=== PATIENT | female | born 1930 | race Caucasian/White ===

== ENCOUNTER → 2016-09-03 | Outpatient (CLI) | payer BC ==
[~2016-09-03] MED LIST: ADVIN50/60 PO; ADVIN50050 INH; ALPR0.25 PO; ANS100 PO; ASPEC325 PO; ASPI81TA28 PO; BNC20 PO; CALC-354 PO; CEPH500C PO; DPS25 PO; ELQ25 PO; FEXO1TAB46 PO; LEVO100T7 PO; LEVO125T4 PO; LPR25 PO; LPT/20 PO; LPT20 PO; MISCTAB78 PO; MONT1TAB5 PO; MULTCAP33 PO; OLME20TA26 PO; OMEP20CA59 PO; SERT50TA PO; XNX25 PO
[2016-09-03 14:58] LABS: URINE APPEARANCE CLEAR (CLEAR); URINE BILIRUBIN NEG (NEG); URINE COLOR YELLOW; URINE EPITHELIAL CELL AUTO 20-30 /lpf (0-5); URINE NITRITE NEG (NEG); URINE PH 5.5 (4.5-7.5); URINE SPECIFIC GRAVITY 1.008 (1.000-1.030); UROBILINOGEN NEG (NEG)
[2016-09-03 15:08] LABS: MANUAL MICROSCOPIC REQUIRED? NO; REVIEW REQ? NO
== END | disposition home or self-care (01) ==
LOC: C.LABBC 10:18
PROVIDERS: ATTEND Internal Medicine
DX: N30.00 Acute cystitis without hematuria (principal); M79.604 Pain in right leg

== ENCOUNTER → 2016-09-03 | Outpatient (CLI) | payer BC ==
--- NOTE | 2016-09-03 13:24 | DIAGNOSTIC IMAGING REPORT ---
ULTRASOUND RIGHT VENOUS DOPP LOWER EXT UNILAT CLINICAL HISTORY: Right leg pain and swelling COMPARISON STUDY: No previous studies for comparison. FINDINGS: Real-time and color flow Doppler imaging were performed. Flow was seen within the femoral, popliteal and calf veins with no intraluminal thrombus demonstrated. The saphenous vein is patent. IMPRESSION: No evidence of right lower extremity DVT. Electronically signed by: Acosta Manuel M.D. 09/03/2016 1:22 PM Dictated Date/Time: 09/03/2016 1:21 PM
== END | disposition home or self-care (01) ==
LOC: C.ULTRBC 12:54
PROVIDERS: ATTEND Internal Medicine
DX: M79.604 Pain in right leg (principal)

== ENCOUNTER → 2016-09-09 | Outpatient (CLI) | payer BC ==
--- NOTE | 2016-09-09 15:00 | MAMMOGRAPHY REPORT ---
BILATERAL DIGITAL SCREENING MAMMOGRAM WITH CAD: 09/09/2016 CLINICAL HISTORY: Routine screening examination. TECHNIQUE: Bilateral CC, MLO and left cleavage views were obtained. Current study was also evaluate d with a Computer Aided Detection (CAD) system. COMPARISON: Comparison is made to exams dated: 09/07/2015 mammogram, 09/06/2014 mammogram, 08/09/2013 mammogram, and 08/06/2012 mammogram - [facility]. BREAST COMPOSITION: There are scattered areas of fibroglandular density in both breasts. FINDINGS: There are stable benign-appearing calcifications within the right breast. Stable nodulari ty in the upper outer anterior right breast. No suspicious mass, architectural distortion or cluste r of suspicious microcalcifications is seen. IMPRESSION: ACR BI-RADS CATEGORY 1: NEGATIVE There is no mammographic evidence of malignancy. A 1 year screening mammogram is recommended. The p atient will receive written notification of the results. Approximately 10% of breast cancers are not detected with mammography. A negative mammographic repor t should not delay biopsy if a clinically suggestive mass is present. Regina Vargas M.D. ay/:09/09/2016 13:26:03 Production Wood Craftsman: Cony PARHAM(R)(M), [facility] letter sent: Normal 1/2 BI-RADS Code: ACR BI-RADS Category 1: Negative
== END | disposition home or self-care (01) ==
LOC: C.MAMM 10:37
PROVIDERS: ATTEND Obstetrics & Gynecology
DX: Z12.31 Encounter for screening mammogram for malignant neoplasm of breast (principal)

== ENCOUNTER 2016-09-16 13:06 | Emergency (ER) | payer BC ==
[~2016-09-16] VITALS: Ht 162.6 cm; Wt 96.9 kg
[~2016-09-16 13:06] MED LIST changes: -ADVIN50/60 PO; -ASPI81TA28 PO; -CEPH500C PO; -LEVO100T7 PO; -LPT/20 PO; -MONT1TAB5 PO; -OLME20TA26 PO; -XNX25 PO
[2016-09-16 13:13] VITALS: TEMP 36.5; Ht 162.6 cm; Wt 96.9 kg
[2016-09-16] MEDS ORDERED: LEVO100T7 PO (13:34)
[2016-09-16] MEDS ORDERED: MONT1TAB5 PO (13:34)
[2016-09-16] MEDS ORDERED: ASPI81TA28 PO (13:34)
--- NOTE | 2016-09-16 14:21 | DIAGNOSTIC IMAGING REPORT ---
LEFT TIBIA AND FIBULA 2 VIEWS CLINICAL HISTORY: Fall with left leg injury. FINDINGS: AP and lateral views of the left tibia and fibula are obtained. Correlation is made with radiographs of the left knee dated 08/20/2011. The skeletal structures are osteopenic. No left tibial or fibular fracture is identified. Arthritic change is noted in the knee. Soft tissue swelling is present around the knee and in the upper calf. IMPRESSION: Soft tissue edema with no radiographic evidence of left tibial or fibular fracture. Electronically signed by: Liam Suarez M.D. 09/16/2016 2:20 PM Dictated Date/Time: 09/16/2016 2:18 PM
--- NOTE | 2016-09-16 14:24 | DIAGNOSTIC IMAGING REPORT ---
LEFT HUMERUS 2 VIEWS HISTORY: fall, left upper arm/shoulder pain COMPARISON: None. FINDINGS: There is no fracture or dislocation. Soft tissues are unremarkable. No radiopaque foreign bodies. IMPRESSION: No fracture or dislocation within the left humerus. Electronically signed by: Boston Quiroz M.D. 09/16/2016 2:22 PM Dictated Date/Time: 09/16/2016 2:21 PM
--- NOTE | 2016-09-16 14:28 | EMERGENCY ROOM VISIT NOTE ---
History First contact with patient: 13:32 Chief Complaint: FALL Stated Complaint: FELL-LARGE BRUISE ON LEFT KNEE History of Present Illness The patient is a 85 year old female who presents to the Emergency Room with complaints of a fall which occurred 3 days ago. The patient reports that she tripped and fell while rearranging furniture 3 days ago. She states she landed onto her left side. She reports that most of her pain is in her left knee and left lower leg. She also has some pain in her left upper arm/shoulder. She denies hitting her head. She denies any other injuries. She has been using crutches to aid with ambulation since the injury. She isn't taking Tylenol as needed for pain at home. She rates her discomfort a 3/10. She was concerned because there is a large amount of bruising and swelling. She denies any previous injuries to the knee or lower leg. Review of Systems A complete 6 point review of systems was reviewed with the patient with pertinent positives and negatives as per history of present illness. All else were negative. Past Medical/Surgical History Medical Problems: (1) Asthma (2) Hypertension (3) Hypothyroidism Social History Smoking Status: Never Smoker Marital Status: Occupation Status: retired Current/Historical Medications Scheduled Apixaban (Eliquis), 5 MG PO BID Aspirin (Aspirin Ec), 81 MG PO DAILY Dapsone (Dapsone), 25 MG PO QAM Fexofenadine Hcl (Crista), 180 MG PO DAILY Levothyroxine Sodium (Levothyroxine Sodium), 100 MCG PO DAILY Metoprolol Tartrate (Lopressor), 25 MG PO BID Montelukast Sodium (Montelukast Sodium), 10 MG PO DAILY Multiple Vitamins W/ Minerals (Preservision Areds), 1 CAP PO QAM Omeprazole (Prilosec), 20 MG PO QAM Sertraline (Zoloft), 50 MG PO AFTERNOON Allergies Coded Allergies: Macrolides (Unverified Allergy, Mild, 12/26/14) Penicillins (Unverified Allergy, Mild, 12/26/14) Amoxicillin (Verified Allergy, Unknown, Upset Stomach, 08/04/15) Azithromycin (Verified Allergy, Unknown, Nausea, 08/04/15) Clarithromycin (Verified Allergy, Unknown, Nausea, 08/04/15) Erythromycin (Verified Allergy, Unknown, ., 12/28/14) Moxifloxacin (Verified Allergy, Unknown, Unknown, 08/04/15) Gluten (Unverified Adverse Reaction, Unknown, RASH, 01/23/15) Pt stated she is "sensitive" to gluten. She gets a rash when gluten is consumed. Physical Exam Vital Signs Date Time Temp Pulse Resp B/P Pulse Ox O2 Delivery O2 Flow Rate FiO2 09/16/16 15:34 82 16 127/61 94 09/16/16 14:52 148/60 09/16/16 13:13 36.5 82 20 153/73 93 Room Air Physical Exam VITALS: Vitals are noted on the nurse's note and reviewed by myself. Vital signs stable. GENERAL: This is an 85-year-old female, in no acute distress, nondiaphoretic, well-developed well-nourished. SKIN: Capillary reflex less than 2 seconds. HEART: Regular rate and rhythm without murmurs gallops or rubs. LUNGS: Clear to auscultation bilaterally without wheezes, rales or rhonchi. MUSCULOSKELETAL: There is mild tenderness to palpation of the left humerus. There is tenderness over the left knee and proximal tibia/fibula. There is a large area of ecchymosis and mild edema over the left tibia/fib. NEURO: Patient was alert and oriented to person place and time. Normal sensation to light and sharp touch. Medical Decision & Procedures ER Provider Diagnostic Interpretation: LEFT HUMERUS 2 VIEWS IMPRESSION: No fracture or dislocation within the left humerus. LEFT KNEE 3 VIEWS IMPRESSION: Degenerative change. Prepatellar soft tissue edema. No acute bony antibody. LEFT TIBIA AND FIBULA 2 VIEWS IMPRESSION: Soft tissue edema with no radiographic evidence of left tibial or fibular fracture. Medical Decision Differential diagnosis includes sprain, fracture, contusion, among others. The patient was evaluated as above. X-rays of the left humerus, left knee and left tibia/fibular performed and read by radiology with no acute fractures. The patient does have a large area of ecchymosis to the left lower extremity. I feel this is likely secondary to her use of anticoagulants. She will be given a walker. She was given compartment syndrome precautions. She'll follow- up with her primary care provider as needed. She refused analgesics. The patient was independently evaluated by Dr. Carpenter, ED attending physician, who agreed with my assessment and treatment plan. She verbalized understanding of my assessment and treatment plan and was discharged home in good condition. Impression Primary Impression: Fall Additional Impressions: Contusion of multiple sites Left leg pain Departure Information Dispostion Home / Self-Care Condition GOOD Referrals Peterson Aguilar M.D. (PCP) Patient Instructions My [facility] [employer] Additional Instructions Use the walker as needed for help with walking until the leg starts feeling better. Continue Tylenol as needed for pain. Follow up with your primary care provider as needed. Return to the emergency department with worsening pain, increasing swelling, difficulty walking, loss of feeling in your leg/foot, or any other new/ concerning symptoms. Problem Qualifiers Primary Impression: Fall Encounter type: initial encounter Qualified Codes: W19.XXXA - Unspecified fall, initial encounter
--- NOTE | 2016-09-16 14:29 | DIAGNOSTIC IMAGING REPORT ---
LEFT KNEE 3 VIEWS CLINICAL HISTORY: fall, left leg pain/swelling/bruising trauma. Pain. COMPARISON: None. DISCUSSION: Moderate degenerative narrowing medial joint compartment. Significant degenerative change patellofemoral joint. Moderate prepatellar soft tissue edema. No acute bony antibody. IMPRESSION: Degenerative change. Prepatellar soft tissue edema. No acute bony antibody. Electronically signed by: Raheem Mccullough M.D. 09/16/2016 2:28 PM Dictated Date/Time: 09/16/2016 2:27 PM
--- NOTE | 2016-09-16 15:01 | EMERGENCY ROOM VISIT NOTE ---
ED Visit Note First contact with patient: 13:32 I did evaluate and examine this patient myself. I did guide management for the patient. I agree with the PA's assessment as discussed. Please see the PAs dictation for further details. I did independently review the x-rays. There is no evidence of fracture. Eyes examination she is neurovascularly intact with good distal pulses. She has no evidence of compartment syndrome. She was given cautions to return and told to keep the leg elevated. She was discharged in good condition with a walker.
[2016-09-16 15:34] VITALS: BP 127/61; PULSE 82; O2SAT 94
== END 2016-09-16 15:36 | disposition home or self-care (01) ==
LOC: C.EDB 13:09 → C.EDD 15:36
DX: S80.02XA Contusion of left knee, initial encounter (principal); S80.12XA Contusion of left lower leg, initial encounter; J45.909 Unspecified asthma, uncomplicated; E03.9 Hypothyroidism, unspecified; I10 Essential (primary) hypertension; W19.XXXA Unspecified fall, initial encounter; Y93.E9 Activity, other interior property and clothing maintenance; Y92.019 Unspecified place in single-family (private) house as the place of occurrence of the external cause; Y99.8 Other external cause status

== ENCOUNTER → 2016-11-01 | Outpatient (CLI) | payer BC ==
[~2016-11-01] MED LIST changes: +ADVIN50/60 PO; -ADVIN50050 INH; -ALPR0.25 PO; -ANS100 PO; -ASPEC325 PO; +ASPI81TA28 PO; -BNC20 PO; -CALC-354 PO; +CEPH500C PO; +LEVO100T7 PO; -LEVO125T4 PO; +LPT/20 PO; -LPT20 PO; -MISCTAB78 PO; +MONT1TAB5 PO; +OLME20TA26 PO; +XNX25 PO
[2016-11-01 15:09] LABS: BASO % 0.3 %; BASO ABS # 0.03 K/uL (0-0.2); COMPLETE YES; EOS % 2.2 %; HEMATOCRIT 36.9 % (37-47); IG% 0.4 %; LYMPH % 16.7 %; LYMPH ABS # 1.75 K/uL (1.2-3.4); MEAN CELL VOLUME 90.2 fL (80-100); MEAN CORPUSCULAR HEMOGLOBIN 29.1 pg (25-34); MEAN CORPUSCULAR HGB CONC 32.2 g/dl (32-36); MEAN PLATELET VOLUME 11.7 fL (7.4-10.4); MONO % 8.8 %; NEUT % 71.6 %; PLATELET COUNT 219 K/uL (130-400); RED BLOOD COUNT 4.09 M/uL (4.2-5.4); WHITE BLOOD COUNT 10.49 K/uL (4.8-10.8)
[2016-11-01 15:09] LABS: URINE APPEARANCE CLEAR (CLEAR); URINE BILIRUBIN NEG (NEG); URINE COLOR YELLOW; URINE NITRITE NEG (NEG); URINE SPECIFIC GRAVITY 1.007 (1.000-1.030); UROBILINOGEN NEG (NEG)
[2016-11-01 15:17] LABS: MANUAL MICROSCOPIC REQUIRED? NO; REVIEW REQ? NO
[2016-11-01 15:17] LABS: ALT/SGPT 22 U/L (12-78); BLOOD UREA NITROGEN 23 mg/dl (7-18); BUN/CREATININE RATIO 28.8 (10-20); CALCIUM 9.3 mg/dl (8.5-10.1); CARBON DIOXIDE 24 mmol/L (21-32); CHLORIDE 108 mmol/L (98-107); CREATININE 0.78 mg/dl (0.60-1.20); GLUCOSE 103 mg/dl (70-99); POTASSIUM 4.2 mmol/L (3.5-5.1); SODIUM 140 mmol/L (136-145)
[2016-11-01 15:20] LABS: ALKALINE PHOSPHATASE 69 U/L (45-117); AST/SGOT 21 U/L (15-37)
== END | disposition home or self-care (01) ==
LOC: C.LABBC 11:39
PROVIDERS: ATTEND Dermatology
DX: Z79.899 Other long term (current) drug therapy (principal); R35.0 Frequency of micturition; R30.0 Dysuria

== ENCOUNTER → 2016-12-30 | Outpatient (CLI) | payer BC ==
[2016-12-30 17:04] LABS: URINE APPEARANCE CLEAR (CLEAR); URINE BILIRUBIN NEG (NEG); URINE COLOR YELLOW; URINE NITRITE NEG (NEG); URINE PH 6.5 (4.5-7.5); URINE SPECIFIC GRAVITY 1.007 (1.000-1.030); UROBILINOGEN NEG (NEG)
[2016-12-30 17:06] LABS: MANUAL MICROSCOPIC REQUIRED? NO; REVIEW REQ? NO
== END | disposition home or self-care (01) ==
LOC: C.LABBC 12:57
PROVIDERS: ATTEND Physician Assistant Medical
DX: R35.0 Frequency of micturition (principal)

== ENCOUNTER → 2017-01-07 | Outpatient (CLI) | payer BC ==
[2017-01-07 13:23] LABS: URINE APPEARANCE CLEAR (CLEAR); URINE BILIRUBIN NEG (NEG); URINE COLOR YELLOW; URINE EPITHELIAL CELL AUTO >30 /lpf (0-5); URINE NITRITE NEG (NEG); URINE SPECIFIC GRAVITY 1.015 (1.000-1.030); UROBILINOGEN NEG (NEG)
[2017-01-07 13:41] LABS: MANUAL MICROSCOPIC REQUIRED? NO; REVIEW REQ? NO
== END | disposition home or self-care (01) ==
LOC: C.LABBC 11:59
PROVIDERS: ATTEND Physician Assistant Medical
DX: R35.0 Frequency of micturition (principal)

== ENCOUNTER → 2017-01-21 | Outpatient (CLI) | payer BC ==
[2017-01-21 13:35] LABS: BASO % 0.4 %; BASO ABS # 0.03 K/uL (0-0.2); COMPLETE YES; EOS % 3.4 %; HEMATOCRIT 36.7 % (37-47); IG% 0.5 %; LYMPH % 22.5 %; LYMPH ABS # 1.87 K/uL (1.2-3.4); MEAN CELL VOLUME 92.9 fL (80-100); MEAN CORPUSCULAR HEMOGLOBIN 29.6 pg (25-34); MEAN CORPUSCULAR HGB CONC 31.9 g/dl (32-36); MEAN PLATELET VOLUME 11.6 fL (7.4-10.4); MONO % 9.5 %; NEUT % 63.7 %; PLATELET COUNT 230 K/uL (130-400); RED BLOOD COUNT 3.95 M/uL (4.2-5.4); WHITE BLOOD COUNT 8.32 K/uL (4.8-10.8)
[2017-01-21 14:17] LABS: ALT/SGPT 23 U/L (12-78); AST/SGOT 18 U/L (15-37); BLOOD UREA NITROGEN 19 mg/dl (7-18); BUN/CREATININE RATIO 25.3 (10-20); CALCIUM 8.9 mg/dl (8.5-10.1); CARBON DIOXIDE 27 mmol/L (21-32); CHLORIDE 110 mmol/L (98-107); CHOLESTEROL 141 mg/dl (0-200); CREATININE 0.77 mg/dl (0.60-1.20); GLUCOSE 91 mg/dl (70-99); HDL CHOLESTEROL 47 mg/dl; LDL CHOLESTEROL CALCULATED 69 mg/dl; POTASSIUM 4.3 mmol/L (3.5-5.1); SODIUM 145 mmol/L (136-145); TRIGLYCERIDES 126 mg/dl (0-150); VERY LOW DENSITY LIPOPROT CALC 25 mg/dl
[2017-01-21 14:21] LABS: ESTIMATED AVERAGE GLUCOSE 91 mg/dl; HA1C FLAG Normal (Normal)
[2017-01-21 14:25] LABS: ALKALINE PHOSPHATASE 71 U/L (45-117); THYROID STIMULATING HORMONE 0.703 uIu/ml (0.300-4.500)
--- NOTE | 2017-01-28 06:19 | CODING QUERY MEDICAL NECESSITY ---
CQSUPPORTING DIAGNOSIS NEEDED A supporting diagnosis is required for the test/procedure performed on this patient in order for us to be reimbursed by the patient's insurance. Please provide a supporting diagnosis for the following test/procedure listed below next to the test name along with your signature. *If there is no additional diagnosis for this patient that would support the following test/procedure please document that below next to the test/procedure. Test(s)/Procedure(s) that require a supporting diagnosis: DOS 01/21/17 VITAMIN D TEST GLYCATED HEMOGLOBIN TEST Provider Signature: Date: Thank you Silvia Galvan Health Information Management Once completed, please kindly fax back to [phone] For questions please call [phone]
== END | disposition home or self-care (01) ==
LOC: C.LABBC 10:02
PROVIDERS: ATTEND Internal Medicine
DX: I48.0 Paroxysmal atrial fibrillation (principal); R73.01 Impaired fasting glucose; Z79.01 Long term (current) use of anticoagulants

== ENCOUNTER → 2017-03-06 | Outpatient (CLI) | payer BC ==
[2017-03-06 16:52] LABS: URINE APPEARANCE CLEAR (CLEAR); URINE BILIRUBIN NEG (NEG); URINE COLOR YELLOW; URINE NITRITE NEG (NEG); UROBILINOGEN NEG (NEG)
[2017-03-06 16:53] LABS: MANUAL MICROSCOPIC REQUIRED? NO; REVIEW REQ? NO
== END | disposition home or self-care (01) ==
LOC: C.LABBC 13:39
PROVIDERS: ATTEND Internal Medicine
DX: R35.0 Frequency of micturition (principal)

== ENCOUNTER → 2017-03-25 | Outpatient (CLI) | payer BC ==
--- NOTE | 2017-03-25 16:45 | DIAGNOSTIC IMAGING REPORT ---
RIGHT KNEE 1 OR 2 VIEWS ROUTINE HISTORY: 86 years-old Female JOINT PAIN, KNEE RIGHT Right COMPARISON: None available TECHNIQUE: Frontal and lateral views of the right knee FINDINGS: There is severe medial compartment and patellofemoral compartment osteoarthritis with moderate lateral compartment disease. No acute fracture or dislocation is identified. There is a moderate-sized joint effusion about the knee. No definite intra-articular loose body is identified. Negative for radiopaque foreign body. IMPRESSION: 1. No acute fracture or dislocation. 2. 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 3. Moderate-sized joint effusion. The above report was generated using voice recognition software. It may contain grammatical, syntax or spelling errors. Electronically signed by: Fredy Anne M.D. 03/25/2017 4:44 PM Dictated Date/Time: 03/25/2017 4:42 PM
== END | disposition home or self-care (01) ==
LOC: C.RADBC 15:20
PROVIDERS: ATTEND Physician Assistant Medical
DX: M17.11 Unilateral primary osteoarthritis, right knee (principal); M25.461 Effusion, right knee

== ENCOUNTER → 2017-04-17 | Outpatient (CLI) | payer BC ==
[2017-04-17 14:24] LABS: URINE APPEARANCE CLEAR (CLEAR); URINE BILIRUBIN NEG (NEG); URINE COLOR DK YELLOW; URINE EPITHELIAL CELL AUTO >30 /lpf (0-5); URINE NITRITE NEG (NEG); UROBILINOGEN NEG (NEG)
[2017-04-17 14:26] LABS: MANUAL MICROSCOPIC REQUIRED? NO; REVIEW REQ? NO
== END | disposition home or self-care (01) ==
LOC: C.LABBC 11:34
PROVIDERS: ATTEND Physician Assistant Medical
DX: R35.0 Frequency of micturition (principal)

== ENCOUNTER 2017-05-01 14:07 | Emergency (ER) | payer BC ==
[~2017-05-01] VITALS: Ht 165.1 cm; Wt 95.5 kg
[~2017-05-01 14:07] MED LIST changes: -ADVIN50/60 PO; -CEPH500C PO; -LPT/20 PO; -OLME20TA26 PO; -XNX25 PO
[2017-05-01 14:14] VITALS: TEMP 36.6; Ht 165.1 cm; Wt 95.5 kg
[2017-05-01] MEDS ORDERED: ADVIN50/60 PO (14:56)
[2017-05-01] MEDS ORDERED: LPT/20 PO (14:56)
[2017-05-01] MEDS ORDERED: XNX25 PO (14:56)
[2017-05-01] MEDS ORDERED: OLME20TA26 PO (14:56)
[2017-05-01] MEDS ORDERED: CEPH500C PO (15:01)
--- NOTE | 2017-05-01 15:02 | EMERGENCY ROOM VISIT NOTE ---
History Report prepared by Shakira: Vanesa Wise Under the Supervision of: Dr. Bradley Pretty D.O. First contact with patient: 14:48 Chief Complaint: SWELLING TO EXTREMITY Stated Complaint: SWELLING TO RIGHT ELBOW History of Present Illness The patient is an 86 year old female who presents to the Emergency Room with complaints of worsening right elbow swelling starting 0200 this morning. The patient states that it seems like there is fluid in her elbow. She states that it was slightly warm. The swelling seems to be spreading. She is on eliquis. She has had her knee drained before after similar swelling. She does not remember injuring it. She has no other complaints at this time. Source of History: patient Onset: 0200 this morning Position: elbow (right) Quality: other (swelling) Timing: worsening Note: Pt reports elbow warmth. Review of Systems See HPI for pertinent positives & negatives. A total of 10 systems reviewed and were otherwise negative. Past Medical & Surgical Medical Problems: (1) Asthma (2) Hypertension (3) Hypothyroidism Family History Noncontributory secondary to age. Social History Smoking Status: Never Smoker Marital Status: Occupation Status: retired Current/Historical Medications Scheduled Apixaban (Eliquis), 5 MG PO BID Aspirin (Aspirin Ec), 81 MG PO DAILY Atorvastatin (Atorvastatin Calcium), 20 MG PO DAILY Dapsone (Dapsone), 50 MG PO QAM Fexofenadine Hcl (Crista), 180 MG PO DAILY Fluticasone Prop/Salmeterol (Advair Diskus 500/50 60 Dose), 1 PUFF PO BID Levothyroxine Sodium (Levothyroxine Sodium), 100 MCG PO DAILY Metoprolol Tartrate (Lopressor), 25 MG PO BID Montelukast Sodium (Montelukast Sodium), 10 MG PO DAILY Multiple Vitamins W/ Minerals (Preservision Areds), 1 CAP PO QAM Olmesartan Medoxomil (Olmesartan Medoxomil), 20 MG PO DAILY Omeprazole (Prilosec), 20 MG PO QAM Sertraline (Zoloft), 50 MG PO AFTERNOON Scheduled PRN Alprazolam (Alprazolam), 0.25 MG PO DAILY PRN for Anxiety Allergies Coded Allergies: Macrolides (Unverified Allergy, Mild, 12/26/14) Penicillins (Unverified Allergy, Mild, 12/26/14) Amoxicillin (Verified Allergy, Unknown, Upset Stomach, 08/04/15) Azithromycin (Verified Allergy, Unknown, Nausea, 08/04/15) Clarithromycin (Verified Allergy, Unknown, Nausea, 08/04/15) Erythromycin (Verified Allergy, Unknown, ., 12/28/14) Moxifloxacin (Verified Allergy, Unknown, Unknown, 08/04/15) Gluten (Unverified Adverse Reaction, Unknown, RASH, 01/23/15) Pt stated she is "sensitive" to gluten. She gets a rash when gluten is consumed. Physical Exam Vital Signs Date Time Temp Pulse Resp B/P (MAP) Pulse Ox O2 Delivery O2 Flow Rate FiO2 05/01/17 14:14 36.6 91 18 114/75 93 Room Air Physical Exam CONSTITUTIONAL/VITAL SIGNS: Reviewed / noted above. GENERAL: Non-toxic in appearance. INTEGUMENTARY: Warm, dry, and [place]. HEAD: Normocephalic. EYES: without scleral icterus or trauma. ENT/OROPHARYNX: clear and moist. LYMPHADENOPATHY/NECK: Is supple without lymphadenopathy or meningismus. RESPIRATORY: Lungs clear and equal. CARDIOVASCULAR: Regular rate and rhythm. GI/ABDOMEN: Soft and nontender. No organomegaly or pulsatile mass. No rebound or guarding. Normal bowel sounds. EXTREMITIES: Warm and well perfused. Ecchymosis and swelling to right elbow, no obvious infection, area slightly warm over the right olecranon. BACK: No CVA tenderness. NEUROLOGICAL: Intact without focal deficits. PSYCHIATRIC: normal affect. MUSCULOSKELETAL: Normally developed with good muscle tone. Medical Decision & Procedures ED Course 1450: Previous medical records were reviewed. The patient was evaluated in room A3. A complete history and physical examination was performed. I discussed the results and findings with the patient. She verbalized agreement of the treatment plan. She was discharged home. Medical Decision Differential diagnosis: infection, contusion, fracture, dislocation. This is an 86-year-old female who presents to the ED with a chief complaint of right elbow swelling. The patient states that she noticed that this morning when she awoke. She does not recall specific injury. She is on Eliquis. The patient's exam reveals a ecchymotic area to the right elbow with some mild traumatic bursitis. There is some increased warmth to the area. The patient has no other specific complaints. Her symptoms are consistent with a traumatic bursitis. She has a contusion to her right elbow. She was discharged on Keflex to prevent or to treat early infection. She is felt to be stable for discharge. Medication Reconcilliation Current Medication List: was personally reviewed by me Blood Pressure Screening Patient's blood pressure: Normal blood pressure Blood pressure disposition: Did not require urgent referral Impression Primary Impression: Contusion of right elbow Scribe Attestation The scribe's documentation has been prepared under my direction and personally reviewed by me in its entirety. I confirm that the note above accurately reflects all work, treatment, procedures, and medical decision making performed by me. Departure Information Dispostion Home / Self-Care Prescriptions Cephalexin Monohydrate (Keflex) 500 Mg Cap 500 MG PO QID, #28 CAP Prov: Bradley Pretty D.O. 05/01/17 Referrals No Doctor, Assigned (PCP) Patient Instructions My [facility] Additional Instructions Keflex as prescribed. Follow-up with your doctor for further care and evaluation in 1-7 days. Return to the emergency department for worsening or new symptoms or any concerns. You have been examined and treated today on an emergency basis only. This is not a substitute for, or an effort to provide, complete comprehensive medical care. It is impossible to recognize and treat all injuries or illnesses in a single emergency department visit. It is therefore important that you follow up closely with your doctor. Call as soon as possible for an appointment.
[2017-05-01 15:23] VITALS: BP 119/54; PULSE 75; O2SAT 94
== END 2017-05-01 15:25 | disposition home or self-care (01) ==
LOC: C.EDB 14:09 → C.EDA 15:25
DX: S50.01XA Contusion of right elbow, initial encounter (principal); X58.XXXA Exposure to other specified factors, initial encounter; J45.909 Unspecified asthma, uncomplicated; I10 Essential (primary) hypertension; E03.9 Hypothyroidism, unspecified; Z79.82 Long term (current) use of aspirin

== ENCOUNTER → 2017-06-02 | Outpatient (CLI) | payer BC ==
[~2017-06-02] MED LIST changes: +ADVIN50/60 PO; +CEPH500C PO; -FEXO1TAB46 PO; +LPT/20 PO; +OLME20TA26 PO; +XNX25 PO
[2017-06-02 13:25] LABS: BASO % 0.4 %; BASO ABS # 0.03 K/uL (0-0.2); COMPLETE YES; EOS % 2.9 %; HEMATOCRIT 36.3 % (37-47); IG% 0.1 %; LYMPH % 26.8 %; LYMPH ABS # 1.88 K/uL (1.2-3.4); MEAN CELL VOLUME 91.2 fL (80-100); MEAN CORPUSCULAR HEMOGLOBIN 29.1 pg (25-34); MEAN PLATELET VOLUME 11.7 fL (7.4-10.4); MONO % 8.6 %; NEUT % 61.2 %; PLATELET COUNT 214 K/uL (130-400); RED BLOOD COUNT 3.98 M/uL (4.2-5.4); WHITE BLOOD COUNT 7.01 K/uL (4.8-10.8)
[2017-06-02 16:22] LABS: ALT/SGPT 20 U/L (12-78); BLOOD UREA NITROGEN 15 mg/dl (7-18); BUN/CREATININE RATIO 19.4 (10-20); CALCIUM 9.2 mg/dl (8.5-10.1); CARBON DIOXIDE 24 mmol/L (21-32); CHLORIDE 110 mmol/L (98-107); CREATININE 0.79 mg/dl (0.60-1.20); GLUCOSE 102 mg/dl (70-99); POTASSIUM 4.1 mmol/L (3.5-5.1); SODIUM 141 mmol/L (136-145)
[2017-06-02 16:25] LABS: ALB/GLOB RATIO 1.1 (0.9-2); ALKALINE PHOSPHATASE 70 U/L (45-117); AST/SGOT 20 U/L (15-37)
== END | disposition home or self-care (01) ==
LOC: C.LABBC 11:45
PROVIDERS: ATTEND Dermatology
DX: Z51.81 Encounter for therapeutic drug level monitoring (principal); Z79.899 Other long term (current) drug therapy

== ENCOUNTER → 2017-07-24 | Outpatient (CLI) | payer BC ==
[2017-07-24 16:58] LABS: BASO % 0.6 %; BASO ABS # 0.05 K/uL (0-0.2); COMPLETE YES; EOS % 2.9 %; HEMATOCRIT 35.4 % (37-47); IG% 0.2 %; LYMPH % 19.2 %; LYMPH ABS # 1.74 K/uL (1.2-3.4); MEAN CELL VOLUME 93.2 fL (80-100); MEAN CORPUSCULAR HEMOGLOBIN 28.9 pg (25-34); MEAN CORPUSCULAR HGB CONC 31.1 g/dl (32-36); MONO % 10.7 %; NEUT % 66.4 %; PLATELET COUNT 214 K/uL (130-400); WHITE BLOOD COUNT 9.08 K/uL (4.8-10.8)
[2017-07-25 06:33] LABS: ESTIMATED AVERAGE GLUCOSE 85 mg/dl; HA1C FLAG Normal (Normal)
== END | disposition home or self-care (01) ==
LOC: C.LABBC 13:15
PROVIDERS: ATTEND Internal Medicine
DX: R73.01 Impaired fasting glucose (principal); D64.9 Anemia, unspecified

== ENCOUNTER → 2017-10-07 | Outpatient (CLI) | payer BC ==
[~2017-10-07] MED LIST changes: -LPT/20 PO; +LPT20 PO
--- NOTE | 2017-10-07 15:24 | MAMMOGRAPHY REPORT ---
BILATERAL DIGITAL SCREENING MAMMOGRAM TOMOSYNTHESIS WITH CAD: 10/07/2017 CLINICAL HISTORY: Routine screening. Patient has no complaints. TECHNIQUE: Breast tomosynthesis in addition to standard 2D mammography was performed. Current study was also evaluated with a Computer Aided Detection (CAD) system. COMPARISON: Comparison is made to exams dated: 09/09/2016 mammogram, 09/07/2015 mammogram, 09/06/2014 m ammogram, 08/09/2013 mammogram, 02/16/2013 mammogram, and 08/21/2012 ultrasound - [facility] enter. BREAST COMPOSITION: There are scattered areas of fibroglandular density in both breasts. FINDINGS: The glandular pattern is similar to prior exams, with stable asymmetries bilaterally. Ther e are benign-appearing calcifications in the right breast. No suspicious mass, architectural distort ion or cluster of suspicious microcalcifications is seen. IMPRESSION: ACR BI-RADS CATEGORY 1: NEGATIVE There is no mammographic evidence of malignancy. A 1 year screening mammogram is recommended. The pa tient will receive written notification of the results. Approximately 10% of breast cancers are not detected with mammography. A negative mammographic report should not delay biopsy if a clinically suggestive mass is present. Regina Vargas M.D. ay/:10/07/2017 13:46:34 [employer]ogshead Stock Clerk: Xochitl Barriga, [facility] letter sent: Normal 1/2 BI-RADS Code: ACR BI-RADS Category 1: Negative
== END | disposition home or self-care (01) ==
LOC: C.MAMM 10:50
PROVIDERS: ATTEND Obstetrics & Gynecology
DX: Z12.31 Encounter for screening mammogram for malignant neoplasm of breast (principal)

== ENCOUNTER → 2017-10-24 | Outpatient (CLI) | payer BC ==
[2017-10-24 17:02] LABS: BASO % 0.4 %; BASO ABS # 0.04 K/uL (0-0.2); EOS % 2.3 %; EOS ABS # 0.25 K/uL (0-0.5); HEMOGLOBIN 11.4 g/dL (12.0-16.0); IG# 0.03 K/uL (0.00-0.02); LYMPH % 18.4 %; LYMPH ABS # 1.96 K/uL (1.2-3.4); MEAN CELL VOLUME 91.8 fL (80-100); MEAN CORPUSCULAR HEMOGLOBIN 29.1 pg (25-34); MEAN CORPUSCULAR HGB CONC 31.7 g/dl (32-36); MEAN PLATELET VOLUME 11.9 fL (7.4-10.4); MONO ABS # 0.96 K/uL (0.11-0.59); NEUT % 69.6 %; NEUT ABS # 7.41 K/uL (1.4-6.5); PLATELET COUNT 217 K/uL (130-400); RED CELL DISTRIBUTION WIDTH CV 13.7 % (11.5-14.5); RED CELL DISTRIBUTION WIDTH SD 45.1 fL (36.4-46.3); WHITE BLOOD COUNT 10.65 K/uL (4.8-10.8)
[2017-10-24 17:29] LABS: BLOOD UREA NITROGEN 28 mg/dl (7-18); CARBON DIOXIDE 24 mmol/L (21-32); CREATININE 0.78 mg/dl (0.60-1.20); GLUCOSE 90 mg/dl (70-99); POTASSIUM 4.3 mmol/L (3.5-5.1); SODIUM 140 mmol/L (136-145)
== END | disposition home or self-care (01) ==
LOC: C.LABBC 14:43
PROVIDERS: ATTEND Internal Medicine
DX: E03.9 Hypothyroidism, unspecified (principal); D64.9 Anemia, unspecified

== ENCOUNTER → 2017-11-11 | Outpatient (CLI) | payer BC ==
[~2017-11-11] MED LIST changes: -CEPH500C PO; +NUTR-7 PO
== END ==
LOC: C.PAPS 15:11
PROVIDERS: ATTEND Obstetrics & Gynecology
DX: Z12.4 Encounter for screening for malignant neoplasm of cervix (principal)

== ENCOUNTER 2017-11-12 13:30 | Emergency (ER) | payer BC ==
[~2017-11-12] VITALS: Ht 162.6 cm; Wt 93.0 kg
[~2017-11-12 13:30] MED LIST changes: -NUTR-7 PO
[2017-11-12 13:33] VITALS: TEMP 36.9; Ht 162.6 cm; Wt 93.0 kg
--- NOTE | 2017-11-12 14:10 | EMERGENCY ROOM VISIT NOTE ---
History Report prepared by Shakira: Alejandro Calles Under the Supervision of: Dr. Genia Pinto D.O. First contact with patient: 13:44 Chief Complaint: PALPITATIONS Stated Complaint: AFIB Nursing Triage Summary: pt woke up with feeling like her heart is racing hx of a fib no c/o chest pain History of Present Illness The patient is an 87 year old female with a history of atrial fibrillation who presents to the Emergency Room with complaints of an episode of palpitations upon waking this morning. She states that she felt like her heart was racing, and she checked her pulse and it felt fast and perhaps was skipping. The patient notes that she was shaky this morning. She says that she did not have any chest pain. The patient states that she called her nurse this morning and was given instructions on how to breathe, and was told to come here for evaluation. She says that she was told to take a half of Xanax which she did. The patient says that currently her heart does not feel like it is racing but her heart "feels funny". She adds that she takes Eliquis and a baby Aspirin daily. The patient denies any dizziness, shortness of breath, nausea, sweating, numbness, tingling, bowel movement changes, urinary symptoms, or leg swelling. She also notes no recent illnesses. Source of History: patient Onset: Upon waking this morning Position: other (heart) Symptom Intensity: heart racing Quality: other (palpitations) Timing: other (episode) Associated Symptoms: No diaphoresis, No chest pain, No SOB, No nausea, No urinary symptoms (or bowel movement changes), No numbness (or tingling) Note: Associated symptoms: Pulse skipping. Shaky this morning. Currently heart "feels funny". Denies dizziness. Review of Systems See HPI for pertinent positives & negatives. A total of 10 systems reviewed and were otherwise negative. Past Medical & Surgical Medical Problems: (1) Asthma (2) Hypertension (3) Hypothyroidism Family History FHx: cancer Heart disease Social History Smoking Status: Never Smoker Marital Status: Occupation Status: retired Current/Historical Medications Scheduled Apixaban (Eliquis), 5 MG PO BID Aspirin (Aspirin Ec), 81 MG PO DAILY Atorvastatin (Lipitor), 20 MG PO DAILY Dapsone (Dapsone), 25 MG PO QAM Fluticasone Prop/Salmeterol (Advair Diskus 500/50 60 Dose), 1 PUFF PO BID Levothyroxine Sodium (Levothyroxine Sodium), 100 MCG PO DAILY Metoprolol Tartrate (Lopressor), 25 MG PO BID Montelukast Sodium (Montelukast Sodium), 10 MG PO DAILY Nutritional Supplements (Boost), 1 CAN PO DAILY Sertraline (Zoloft), 75 MG PO AFTERNOON Scheduled PRN Alprazolam (Alprazolam), 0.25 MG PO DAILY PRN for Anxiety Allergies Coded Allergies: Macrolides (Unverified Allergy, Mild, 11/12/17) Penicillins (Unverified Allergy, Mild, 11/12/17) Amoxicillin (Verified Allergy, Unknown, Upset Stomach, 11/12/17) Azithromycin (Verified Allergy, Unknown, Nausea, 11/12/17) Clarithromycin (Verified Allergy, Unknown, Nausea, 11/12/17) Erythromycin (Verified Allergy, Unknown, ., 11/12/17) Moxifloxacin (Verified Allergy, Unknown, Unknown, 11/12/17) Gluten (Unverified Adverse Reaction, Unknown, RASH, 11/12/17) Pt stated she is "sensitive" to gluten. She gets a rash when gluten is consumed. Physical Exam Vital Signs Date Time Temp Pulse Resp B/P (MAP) Pulse Ox O2 Delivery O2 Flow Rate FiO2 11/12/17 15:57 91 11/12/17 15:23 77 18 123/76 96 Room Air 11/12/17 13:54 89 11/12/17 13:33 36.9 101 18 171/72 93 Room Air Physical Exam GENERAL: alert, well appearing, well nourished, no distress, non-toxic EYE EXAM: normal conjunctiva, PERRL and EOM's grossly intact OROPHARYNX: no exudate, no erythema, lips, buccal mucosa, and tongue normal and mucous membranes are moist NECK: supple, no nuchal rigidity, no adenopathy, non-tender LUNGS: Clear to auscultation. Normal chest wall mechanics, no w/r/r HEART: Normal sinus rhythm on telemetry, no murmurs, S1 normal and S2 normal ABDOMEN: abdomen soft, non-tender, normo-active bowel sounds, no masses, no rebound or guarding. BACK: Back is symmetrical on inspection and there is no deformity, no midline tenderness, no CVA tenderness. SKIN: no rashes and no bruising UPPER EXTREMITIES: upper extremities are grossly normal. FROM, nml pulses. LOWER EXTREMITIES: No pitting edema. FROM, nml pulses. NEURO EXAM: Normal sensorium, cranial nerves II-XII grossly intact, normal speech, no gross weakness of arms, no gross weakness of legs. Medical Decision & Procedures ER Provider Diagnostic Interpretation: X-ray: Per my review, radiologist interpretation. CHEST ONE VIEW PORTABLE CLINICAL HISTORY: palpitations cardiac arrhythmia COMPARISON STUDY: No previous studies for comparison. FINDINGS: The bones soft tissues and hemidiaphragms are normal. The cardiomediastinal silhouette is normal. The lungs are clear. The pulmonary vasculature is somewhat increased IMPRESSION: Pulmonary vascular congestion. The above report was generated using voice recognition software. It may contain grammatical, syntax or spelling errors. Electronically signed by: Raheem Mccullough M.D. 11/12/2017 2:37 PM Dictated Date/Time: 11/12/2017 2:32 PM Laboratory Results 11/12/17 14:11 Red Blood Count 3.64, Mean Corpuscular Volume 91.2, Mean Corpuscular Hemoglobin 29.7, Mean Corpuscular Hemoglobin Concent 32.5, Mean Platelet Volume 11.1, Neutrophils (%) (Auto) 73.8, Lymphocytes (%) (Auto) 15.0, Monocytes (%) (Auto) 9.2, Eosinophils (%) (Auto) 1.6, Basophils (%) (Auto) 0.2, Neutrophils # (Auto) 5.98, Lymphocytes # (Auto) 1.22, Monocytes # (Auto) 0.75, Eosinophils # (Auto) 0.13, Basophils # (Auto) 0.02 11/12/17 14:11 Test 11/12/17 14:11 11/12/17 14:29 11/12/17 16:31 White Blood Count 8.12 K/uL (4.8-10.8) Red Blood Count 3.64 M/uL (4.2-5.4) Hemoglobin 10.8 g/dL (12.0-16.0) Hematocrit 33.2 % (37-47) Mean Corpuscular Volume 91.2 fL (80-100) Mean Corpuscular Hemoglobin 29.7 pg (25-34) Mean Corpuscular Hemoglobin Concent 32.5 g/dl (32-36) Platelet Count 179 K/uL (130-400) Mean Platelet Volume 11.1 fL (7.4-10.4) Neutrophils (%) (Auto) 73.8 % Lymphocytes (%) (Auto) 15.0 % Monocytes (%) (Auto) 9.2 % Eosinophils (%) (Auto) 1.6 % Basophils (%) (Auto) 0.2 % Neutrophils # (Auto) 5.98 K/uL (1.4-6.5) Lymphocytes # (Auto) 1.22 K/uL (1.2-3.4) Monocytes # (Auto) 0.75 K/uL (0.11-0.59) Eosinophils # (Auto) 0.13 K/uL (0-0.5) Basophils # (Auto) 0.02 K/uL (0-0.2) RDW Standard Deviation 45.2 fL (36.4-46.3) RDW Coefficient of Variation 13.6 % (11.5-14.5) Immature Granulocyte % (Auto) 0.2 % Immature Granulocyte # (Auto) 0.02 K/uL (0.00-0.02) Prothrombin Time 10.5 SECONDS (9.0-12.0) Prothromb Time International Ratio 1.0 (0.9-1.1) Anion Gap 9.0 mmol/L (3-11) Est Creatinine Clear Calc Drug Dose 55.1 ml/min Estimated GFR () 76.2 Estimated GFR (Non- 65.8 BUN/Creatinine Ratio 39.5 (10-20) Calcium Level 9.1 mg/dl (8.5-10.1) Magnesium Level 2.2 mg/dl (1.8-2.4) Total Bilirubin 0.6 mg/dl (0.2-1) Aspartate Amino Transf (AST/SGOT) 16 U/L (15-37) Alanine Aminotransferase (ALT/SGPT) 18 U/L (12-78) Alkaline Phosphatase 64 U/L (45-117) Troponin I < 0.015 ng/ml (0-0.045) Pro-B-Type Natriuretic Peptide 188 pg/ml (0-1800) Total Protein 6.9 gm/dl (6.4-8.2) Albumin 3.3 gm/dl (3.4-5.0) Globulin 3.6 gm/dl (2.5-4.0) Albumin/Globulin Ratio 0.9 (0.9-2) Lipase 278 U/L (73-393) Thyroid Stimulating Hormone (TSH) 1.200 uIu/ml (0.300-4.500) Influenza Type A Antigen Neg for Influ A (NEG) Influenza Type B Antigen Neg for Influ B (NEG) Urine Color YELLOW Urine Appearance CLEAR (CLEAR) Urine pH 6.0 (4.5-7.5) Urine Specific Bishop <= 1.005 (1.000-1.030) Urine Protein NEG (NEG) Urine Glucose (UA) NEG (NEG) Urine Ketones NEG (NEG) Urine Occult Blood NEG (NEG) Urine Nitrite NEG (NEG) Urine Bilirubin NEG (NEG) Urine Urobilinogen NEG (NEG) Urine Leukocyte Esterase NEG (NEG) Laboratory results per my review. ECG Per My Interpretation Indication: palpitations Rate (beats per minute): 91 Rhythm: normal sinus Findings: Q waves (in 3 and AVF), no acute ischemic change, other (normal axis , normal intervals, low voltage throughout) ED Course 1400: The patient was evaluated in room B12B. A complete history and physical exam was performed. Medical Decision Differential diagnosis includes etiologies such as premature contractions, electrolyte abnormality, cardiac dysrhythmia, thyroid dysfunction, pulmonary embolism, infection, gastrointestinal, as well as others were entertained. NO dysrhythmias noted on tele during stay or with ambulation. Pt states she still felt intermittent palpitations. No apparent distress. Labs and imaging reassuring. No evidence of infection, electrolyte abnormalities. Pt states she has had intermittent a.fib which is why she is anticoagulated, but states she has also had this same sense in her chest due to anxiety which is why when she called the advice nurse they instructed her to try some breathing exercises first. No findings to suggest chau chf. Pt with no pain or sob. Doubt acs, pe. Doubt acute vascular pathology. Anemia stable compared to prior levels. Discussed with pt close f/u with her live source operator, continuing current medications, avoiding salt in her diet, sx to watch/return for, she verbalized understanding and was agreeable with plan. Pt without any distress or hypoxia during ambulation, and denied any other complaints. Pt comfortable with plan and eager to return home. All questions answered at bedside. Medication Reconcilliation Current Medication List: was personally reviewed by me Blood Pressure Screening Patient's blood pressure: Elevated blood pressure Blood pressure disposition: Referred to PCP Impression Primary Impression: Palpitations Scribe Attestation The scribe's documentation has been prepared under my direction and personally reviewed by me in its entirety. I confirm that the note above accurately reflects all work, treatment, procedures, and medical decision making performed by me. Departure Information Dispostion Home / Self-Care Referrals Peterson Aguilar M.D. (PCP) Patient Instructions [facility] Additional Instructions Please call and follow-up with your doctor within the next 2 days. Please call and follow-up with your live source operator as a precaution also. If you have any more persistent or worsening palpitations/racing heart, develop trouble breathing, dizziness, worsening cough, fevers, swelling in your legs, you have any other new concerns, please return the emergency room. Please continue your regular medications as prescribed.
[2017-11-12 14:23] LABS: BASO % 0.2 %; BASO ABS # 0.02 K/uL (0-0.2); EOS % 1.6 %; EOS ABS # 0.13 K/uL (0-0.5); HEMATOCRIT 33.2 % (37-47); HEMOGLOBIN 10.8 g/dL (12.0-16.0); IG# 0.02 K/uL (0.00-0.02); LYMPH ABS # 1.22 K/uL (1.2-3.4); MEAN CELL VOLUME 91.2 fL (80-100); MEAN CORPUSCULAR HEMOGLOBIN 29.7 pg (25-34); MEAN CORPUSCULAR HGB CONC 32.5 g/dl (32-36); MEAN PLATELET VOLUME 11.1 fL (7.4-10.4); MONO % 9.2 %; MONO ABS # 0.75 K/uL (0.11-0.59); NEUT % 73.8 %; NEUT ABS # 5.98 K/uL (1.4-6.5); PLATELET COUNT 179 K/uL (130-400); RED CELL DISTRIBUTION WIDTH CV 13.6 % (11.5-14.5); RED CELL DISTRIBUTION WIDTH SD 45.2 fL (36.4-46.3); WHITE BLOOD COUNT 8.12 K/uL (4.8-10.8)
--- NOTE | 2017-11-12 14:38 | DIAGNOSTIC IMAGING REPORT ---
CHEST ONE VIEW PORTABLE CLINICAL HISTORY: palpitations cardiac arrhythmia COMPARISON STUDY: No previous studies for comparison. FINDINGS: The bones soft tissues and hemidiaphragms are normal. The cardiomediastinal silhouette is normal. The lungs are clear. The pulmonary vasculature is somewhat increased IMPRESSION: Pulmonary vascular congestion. The above report was generated using voice recognition software. It may contain grammatical, syntax or spelling errors. Electronically signed by: Raheem Mccullough M.D. 11/12/2017 2:37 PM Dictated Date/Time: 11/12/2017 2:32 PM
[2017-11-12 15:03] LABS: BLOOD UREA NITROGEN 32 mg/dl (7-18); CREATININE 0.81 mg/dl (0.60-1.20); GLUCOSE 99 mg/dl (70-99)
[2017-11-12 15:04] LABS: CALCIUM 9.1 mg/dl (8.5-10.1); CARBON DIOXIDE 21 mmol/L (21-32); POTASSIUM 3.9 mmol/L (3.5-5.1); SODIUM 138 mmol/L (136-145)
[2017-11-12 15:05] LABS: ALBUMIN 3.3 gm/dl (3.4-5.0); ALT/SGPT 18 U/L (12-78); AST/SGOT 16 U/L (15-37); TOTAL PROTEIN 6.9 gm/dl (6.4-8.2)
[2017-11-12 15:06] LABS: ALKALINE PHOSPHATASE 64 U/L (45-117); LIPASE 278 U/L (73-393)
[2017-11-12 15:09] LABS: INFLUENZA B ANTIGEN Neg for Influ B (NEG)
[2017-11-12] MEDS ORDERED: NUTR-7 PO (15:19)
[2017-11-12 15:23] VITALS: BP 123/76; PULSE 77
[2017-11-12 15:57] VITALS: O2SAT 91
== END 2017-11-12 17:39 | disposition home or self-care (01) ==
LOC: C.EDB 13:31
DX: R00.2 Palpitations (principal); J45.909 Unspecified asthma, uncomplicated; I10 Essential (primary) hypertension; I48.91 Unspecified atrial fibrillation; E03.9 Hypothyroidism, unspecified; Z79.01 Long term (current) use of anticoagulants; Z79.82 Long term (current) use of aspirin; Z79.899 Other long term (current) drug therapy

== ENCOUNTER → 2017-11-27 | Outpatient (CLI) | payer BC ==
[~2017-11-27] MED LIST changes: -MULTCAP33 PO; +NUTR-7 PO; -OLME20TA26 PO; -OMEP20CA59 PO
[2017-11-27 17:00] LABS: BASO % 0.3 %; BASO ABS # 0.03 K/uL (0-0.2); EOS % 2.3 %; EOS ABS # 0.21 K/uL (0-0.5); HEMATOCRIT 35.5 % (37-47); HEMOGLOBIN 11.5 g/dL (12.0-16.0); IG# 0.04 K/uL (0.00-0.02); LYMPH % 17.3 %; MEAN CELL VOLUME 93.7 fL (80-100); MEAN CORPUSCULAR HEMOGLOBIN 30.3 pg (25-34); MEAN CORPUSCULAR HGB CONC 32.4 g/dl (32-36); MEAN PLATELET VOLUME 11.3 fL (7.4-10.4); MONO % 10.6 %; MONO ABS # 0.98 K/uL (0.11-0.59); NEUT % 69.1 %; NEUT ABS # 6.39 K/uL (1.4-6.5); PLATELET COUNT 225 K/uL (130-400); RED CELL DISTRIBUTION WIDTH CV 14.3 % (11.5-14.5); RED CELL DISTRIBUTION WIDTH SD 49.1 fL (36.4-46.3); WHITE BLOOD COUNT 9.25 K/uL (4.8-10.8)
[2017-11-27 17:32] LABS: ALBUMIN 3.6 gm/dl (3.4-5.0); ALKALINE PHOSPHATASE 68 U/L (45-117); ALT/SGPT 25 U/L (12-78); AST/SGOT 21 U/L (15-37); BLOOD UREA NITROGEN 28 mg/dl (7-18); CALCIUM 9.1 mg/dl (8.5-10.1); CARBON DIOXIDE 28 mmol/L (21-32); CREATININE 1.07 mg/dl (0.60-1.20); GLUCOSE 83 mg/dl (70-99); POTASSIUM 4.3 mmol/L (3.5-5.1); SODIUM 138 mmol/L (136-145)
[2017-11-27 17:34] LABS: TOTAL PROTEIN 7.2 gm/dl (6.4-8.2)
== END | disposition home or self-care (01) ==
LOC: C.LABBC 12:25
PROVIDERS: ATTEND Dermatology
DX: Z51.81 Encounter for therapeutic drug level monitoring (principal); Z79.899 Other long term (current) drug therapy

== ENCOUNTER → 2017-12-26 | Outpatient (CLI) | payer BC ==
--- NOTE | 2017-12-26 14:05 | DIAGNOSTIC IMAGING REPORT ---
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 A dose lowering technique was utilized adhering to the principles of ALARA. Comparison: None. Findings: The paranasal sinuses and mastoid air cells are clear. The calvarium and skull base are intact. The ventricles and sulci are within normal limits. There is no mass, hematoma, midline shift, or acute infarct. Mild age-related atrophy and chronic small vessel change. Impression: No acute intracranial abnormality. Mild age-related atrophy and chronic small vessel change. The above report was generated using voice recognition software. It may contain grammatical, syntax or spelling errors. Electronically signed by: Raheem Mccullough M.D. 12/26/2017 2:03 PM Dictated Date/Time: 12/26/2017 2:02 PM
[2017-12-26 15:34] LABS: BASO % 0.4 %; BASO ABS # 0.04 K/uL (0-0.2); EOS % 1.9 %; EOS ABS # 0.17 K/uL (0-0.5); HEMATOCRIT 36.2 % (37-47); HEMOGLOBIN 11.6 g/dL (12.0-16.0); IG# 0.04 K/uL (0.00-0.02); LYMPH % 21.3 %; LYMPH ABS # 1.94 K/uL (1.2-3.4); MEAN CELL VOLUME 92.6 fL (80-100); MEAN CORPUSCULAR HEMOGLOBIN 29.7 pg (25-34); MEAN PLATELET VOLUME 11.6 fL (7.4-10.4); MONO % 7.1 %; MONO ABS # 0.65 K/uL (0.11-0.59); NEUT % 68.9 %; NEUT ABS # 6.28 K/uL (1.4-6.5); PLATELET COUNT 209 K/uL (130-400); RED CELL DISTRIBUTION WIDTH CV 13.4 % (11.5-14.5); RED CELL DISTRIBUTION WIDTH SD 45.4 fL (36.4-46.3); WHITE BLOOD COUNT 9.12 K/uL (4.8-10.8)
== END | disposition home or self-care (01) ==
LOC: C.CTS 13:24
PROVIDERS: ATTEND Family Medicine Adult Medicine
DX: G51.0 Bell's palsy (principal)

== ENCOUNTER → 2018-03-31 | Outpatient (CLI) | payer BC ==
[~2018-03-31] MED LIST changes: +ALPR0.254 PO; -XNX25 PO
[2018-03-31 16:54] LABS: BASO % 0.4 %; BASO ABS # 0.03 K/uL (0-0.2); EOS % 4.4 %; EOS ABS # 0.32 K/uL (0-0.5); HEMATOCRIT 36.8 % (37-47); HEMOGLOBIN 11.6 g/dL (12.0-16.0); IG# 0.02 K/uL (0.00-0.02); LYMPH % 18.5 %; LYMPH ABS # 1.36 K/uL (1.2-3.4); MEAN CELL VOLUME 93.2 fL (80-100); MEAN CORPUSCULAR HEMOGLOBIN 29.4 pg (25-34); MEAN CORPUSCULAR HGB CONC 31.5 g/dl (32-36); MONO % 9.9 %; MONO ABS # 0.73 K/uL (0.11-0.59); NEUT % 66.5 %; NEUT ABS # 4.89 K/uL (1.4-6.5); PLATELET COUNT 218 K/uL (130-400); RED CELL DISTRIBUTION WIDTH CV 13.7 % (11.5-14.5); RED CELL DISTRIBUTION WIDTH SD 46.9 fL (36.4-46.3); WHITE BLOOD COUNT 7.35 K/uL (4.8-10.8)
[2018-03-31 17:19] LABS: ALBUMIN 3.5 gm/dl (3.4-5.0); ALKALINE PHOSPHATASE 59 U/L (45-117); ALT/SGPT 21 U/L (12-78); AST/SGOT 21 U/L (15-37); BLOOD UREA NITROGEN 25 mg/dl (7-18); CALCIUM 8.9 mg/dl (8.5-10.1); CARBON DIOXIDE 23 mmol/L (21-32); CREATININE 0.84 mg/dl (0.60-1.20); GLUCOSE 94 mg/dl (70-99); POTASSIUM 4.4 mmol/L (3.5-5.1); SODIUM 138 mmol/L (136-145); TOTAL PROTEIN 6.9 gm/dl (6.4-8.2)
== END | disposition home or self-care (01) ==
LOC: C.LABBC 12:40
PROVIDERS: ATTEND Internal Medicine
DX: E03.9 Hypothyroidism, unspecified (principal); R53.83 Other fatigue

== ENCOUNTER 2020-04-26 14:53 | Observation (INO) ==
[2020-04-26 15:37] LABS: Basophils # (auto) 0.01 K/uL (0-0.2); Basophils % (auto) 0.1 %; Eosinophils # (auto) 0.05 K/uL (0-0.5); Eosinophils % (auto) 0.4 %; Hematocrit (blood only) 35.1 % (37-47); Hemoglobin 11.5 g/dL (12.0-16.0); Immature Granulocytes # (auto) 0.04 K/uL (0.00-0.02); Immature Granulocytes % (auto) 0.4 %; Lymphocytes # (auto) 1.28 K/uL (1.2-3.4); Lymphocytes % (auto) 11.4 %; Mean Corpuscular Hemoglobin 29.6 pg (25-34); Mean Corpuscular Hgb Conc 32.8 g/dL (32-36); Mean Corpuscular Volume 90.2 fL (80-100); Mean Platelet Volume 10.8 fL (7.4-10.4); Monocytes # (auto) 0.61 K/uL (0.11-0.59); Monocytes % (auto) 5.4 %; Neutrophils # (auto) 9.27 K/uL (1.4-6.5); Neutrophils % (auto) 82.3 %; Platelet Count 196 K/uL (130-400); RDW Coefficient of Variation 13.6 % (11.5-14.5); Red Blood Count 3.89 M/uL (4.2-5.4); White Blood Count 11.26 K/uL (4.8-10.8)
[2020-04-26] MEDS ORDERED: SODIUM CHLORIDE 0.9% 1000ML 250 ML IV ONE (15:41)
--- NOTE | 2020-04-26 15:49 | Emergency Department Note ---
History of Present Illness General Chief complaint: Vertigo Stated complaint: NAUSEA, VOMITING, DIZZINESS Time Seen by Provider: 04/26/20 15:32 Source: patient and RN notes reviewed Mode of arrival: EMS Limitations: no limitations History of Present Illness This patient is an 81-year-old white female who comes in after having dizziness and nausea vomiting. She said she woke up this way this morning. She is on Eliquis. She did fall March 29 but is been no fall since then. She describes as a spinning she thought her vision was slightly blurry. She did receive apparently IV Zofran and on route and is feeling significantly better. Denies chest pain or shortness of breath. No focal numbness weakness no difficulty speaking or swallowing. She did take one half of her Xanax. She did have some diarrhea last evening without blood or melena. Denies any known exposure to COVID or fevers. Home Medications Home Medications Medication Instructions Recorded Confirmed Type aspirin [Aspir-81] 81 mg PO DAILY 05/27/18 04/26/20 History benzonatate 100 mg capsule 100 mg PO TID PRN #30 cap 01/19/19 04/26/20 Rx ipratropium 0.5 mg-albuterol 3 mg 3 ml INH Q4H PRN #90 ml 01/19/19 04/26/20 Rx (2.5 mg base)/3 mL nebulization soln nystatin 100,000 unit/gram topical 1 appln TOP TID PRN #60 gm 01/19/19 04/26/20 Rx powder vit C 250 mg-E 200 unit-zinc 40 1 tab PO BID #60 cap 01/19/19 04/26/20 Rx mg-copper 1 [id number] capsule cholecalciferol (vitamin D3) 50 2,000 units PO DAILY #1 cap 02/03/19 04/26/20 History mcg (2,000 unit) capsule telmisartan 40 mg tablet 40 mg PO DAILY #30 tab 05/04/19 04/26/20 Rx levothyroxine 75 mcg capsule 75 mcg PO .COMPLEX #30 cap 08/05/19 04/26/20 Rx alprazolam 0.25 mg tablet 0.25 mg PO DAILY PRN #30 tab 08/12/19 04/26/20 Rx omeprazole 20 mg capsule,delayed 20 mg PO DAILY #90 cap 09/21/19 04/26/20 Rx release metoprolol tartrate 25 mg tablet 25 mg PO BID #180 tab 11/01/19 04/26/20 Rx montelukast 10 mg tablet 10 mg PO DAILY #30 tab 11/01/19 04/26/20 Rx apixaban 5 mg tablet 5 mg PO BID #180 tab 11/29/19 04/26/20 Rx dapsone 25 mg tablet 25 mg PO DAILY #30 tab 11/29/19 04/26/20 Rx food supplemt, lactose-reduced 1 ea PO DAILY #237 ml 11/29/19 04/26/20 Rx 0.04 gram-1.05 kcal/mL oral liquid inhalational spacing device #1 ea 11/29/19 11/29/19 Rx fluticasone propionate 50 2 sprays INTRANASAL DAILY #18.2 gm 12/27/19 04/26/20 Rx mcg/actuation nasal spray,suspension sertraline 50 mg tablet 75 mg PO DAILY #45 tab 12/27/19 04/26/20 Rx levothyroxine 88 mcg tablet 88 mcg PO .COMPLEX #60 tab 02/01/20 04/26/20 Rx atorvastatin 20 mg tablet 20 mg PO DAILY #90 tab 02/23/20 04/26/20 Rx gabapentin 100 mg PO HS PRN 03/29/20 04/26/20 History doxycycline hyclate 100 mg PO BID 04/26/20 04/26/20 History Allergies Allergy/AdvReac Type Severity Reaction Status Date / Time amoxicillin Allergy Mild Rash Verified 04/26/20 17:03 cefadroxil Allergy Mild Rash Verified 04/26/20 17:03 Penicillins Allergy Mild Unknown Verified 04/26/20 17:03 erythromycin base Allergy Unknown Unknown Verified 04/26/20 17:03 azithromycin [From Zithromax] AdvReac Intermediate Nausea Verified 04/26/20 17:03 clarithromycin AdvReac Intermediate Nausea Verified 04/26/20 17:03 Macrolide Antibiotics AdvReac Intermediate Gastrointestinal Verified 04/26/20 17:03 Upset moxifloxacin AdvReac Intermediate Nausea Verified 04/26/20 17:03 nitrofurantoin AdvReac Intermediate Gatrointestional Verified 04/26/20 17:03 Upset Sulfa (Sulfonamide AdvReac Intermediate Nausea Verified 04/26/20 17:03 Antibiotics) gluten AdvReac Unknown RASH Verified 04/26/20 17:03 Past Med/Surg History Medical History Actinic keratosis Agoraphobia with panic attacks Anemia Anticoagulant long-term use Anxiety Arteriosclerosis of coronary artery Asthma Atrial fibrillation dx 2014 - on Eliquis - follows w/ Dr. Faith Dermatitis herpetiformis Diverticular disease Fall Gait disturbance Generalized osteoarthritis of multiple sites GERD without esophagitis Heart palpitations History of thyroid cancer [place] (hard of hearing) Hyperhidrosis Hyperlipemia Hyperlipidemia Hypertension Hypothyroidism Hypothyroidism Impacted cerumen of both ears Impaired fasting glucose Insomnia Leukocytosis Lumbar spinal stenosis Macular degeneration Macular degeneration NSTEMI (non-ST elevated myocardial infarction) Osteoarthritis Papillary carcinoma of thyroid Poor historian PTSD (post-traumatic stress disorder) Sleep apnea non compliant with CPAP TMJ (temporomandibular joint disorder) Trigeminal neuralgia UTI (lower urinary tract infection) Vertigo Vitamin D deficiency Weakness generalized Surgical History History of arthroscopic knee surgery History of breast biopsy History of cataract surgery History of dilatation and curettage x 3 History of hysterectomy History of partial thyroidectomy History of tonsillectomy History of total abdominal hysterectomy Nausea and vomiting after administration of anesthetic agent Status post biopsy of thyroid gland Family History Daughter ADHD Hypertension Tourette's Other Heart disease No family history of adverse response to anesthesia Social History Smoking Status: Never smoker Second Hand Exposure: Yes (previous exposure when was living); Hx Alcohol Use: No Hx Substance Use: No Preferred Language: Arabic Communication Ability: Effective Visual Impairment: Diminished Hearing Ability: Hard of Hearing 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: No Beliefs That Will Affect Care: None marital status: Current Living Situation: Family Current Living Situation Comment: grandson current occupational status: retired Feels Safe at Home: Yes Childhood Exposure to Second-Hand Smoke: Yes Dental Care, Regularly: Yes Physical Activity Frequency: Does not Exercise Seatbelt Use: always Sunscreen Use: No Review of Systems A total of 10 systems reviewed and were otherwise negative Physical Exam Vital Signs Vital Signs - 24 hr 04/26/20 15:15 04/26/20 15:31 04/26/20 15:37 Temperature 36.4 C L Temperature Source Oral Pulse Rate 73 71 Pulse Rate from SpO2 Sensor 71 Respiratory Rate 18 16 Respiratory Effort / Characteristics Spontaneous Blood Pressure 200/79 H 155/70 H Blood Pressure [Right Arm] Blood Pressure Mean 119 93 Blood Pressure Mean [Right Arm] Pulse Oximetry 90 93 86 L Oxygen Delivery Method Room Air Room Air Nasal Cannula Oxygen Flow Rate Sepsis Recent Fever Within 48 Hours No Sepsis New/Unexplained Change in Mental Status N/A Sepsis Action Taken by Nursing No Action Required Oxygen Flow Rate - Titration 3 Pulse Oximetry Post Tiitration 99 04/26/20 18:15 04/26/20 19:38 Temperature 36.7 C Temperature Source Oral Pulse Rate Pulse Rate from SpO2 Sensor Respiratory Rate 20 Respiratory Effort / Characteristics Blood Pressure Blood Pressure [Right Arm] 176/77 H Blood Pressure Mean Blood Pressure Mean [Right Arm] 110 Pulse Oximetry 95 Oxygen Delivery Method Nasal Cannula Room Air Oxygen Flow Rate 3 Sepsis Recent Fever Within 48 Hours Sepsis New/Unexplained Change in Mental Status Sepsis Action Taken by Nursing Oxygen Flow Rate - Titration Pulse Oximetry Post Tiitration General: Well developed well nourished older female who appears in no acute distress, breathing comfortably on room air. Normal speech HEENT: Normal cephalic atraumatic. Pupils are equal round and reactive to light. Sclera anicteric. Extraocular movements are intact. Oropharynx is pink with moist mucous membranes. No swelling of the mouth lips or tongue. Neck: Supple with a midline trachea. No meningeal signs or stiffness, no JVD or bruits. No Stridor. Chest: Clear to auscultation bilaterally. No wheezes or rhonchi. No increased work of breathing. Heart: Regular rate and rhythm without murmurs or gallops. Abdomen: Soft nontender, nondistended without rebound guarding or rigidity. Extremities: No cyanosis clubbing or edema. No calf tenderness or assymetry Spine/Back. Non tender to palpation. No CVA tenderness Skin: Good turgor without rashes. Neurologic exam: Cranial nerves two through 12 are intact. Motor and sensation are intact and symmetrical throughout. No tremor. Course Administered Medications Albuterol (Albut/Ipratrop 3mg/0.5mg Neb 3 Ml Vial) 3 ml INH Q4H PRN PRN Reason: shortness of breath or wheezing Stop: 05/26/20 19:45 Last Admin: 04/26/20 20:01 Dose: 3 ml Documented by: [id number] Alprazolam (Alprazolam 0.25 Mg Tablet) 0.25 mg PO DAILY PRN PRN Reason: Anxiety Stop: 05/26/20 19:45 Last Admin: 04/26/20 20:11 Dose: 0.25 mg Documented by: [id number] Sodium Chloride (Nss) 500 mls @ 125 mls/hr IV .Q4H KRISTIAN Stop: 04/26/20 23:44 Last Infusion: 04/26/20 21:46 Dose: 0 mls/hr Documented by: [id number] Admin: 04/26/20 19:58 Dose: 125 mls/hr Documented by: [id number] Ondansetron HCl (Ondansetron Inj 2 Mg/Ml 2 Ml Vial) 4 mg IV Q6H PRN PRN Reason: Nausea Stop: 05/26/20 20:57 Last Admin: 04/26/20 21:05 Dose: 4 mg Documented by: [id number] Discontinued Medications Sodium Chloride (Nss 1000ml) 250 mls @ 999 mls/hr IV .Q16M ONE Stop: 04/26/20 15:56 Last Infusion: 04/26/20 16:16 Dose: 0 mls/hr Documented by: [id number] Admin: 04/26/20 15:59 Dose: 999 mls/hr Documented by: [id number] Ondansetron HCl (Ondansetron Inj 2 Mg/Ml 2 Ml Vial) 4 mg IV NOW STA Stop: 04/26/20 16:39 Last Admin: 04/26/20 19:57 Dose: Not Given Documented by: [id number] Medical Decision Making Differential Diagnosis Vertigo, CVA, intracranial hemorrhage, electrolyte or metabolic abnormality, anemia, infection, trauma, COVID Medical Records Attestation: I reviewed the patient's medical records. Home Medications Current Medication List: was personally reviewed by me Laboratory Data Attestation: I reviewed the patient's lab results. Result diagrams: 04/26/20 15:22 04/26/20 15:22 Lab Results 04/26/20 04/26/20 04/26/20 Range/Units 15:22 15:22 15:22 WBC 11.26 H (4.8-10.8) K/uL RBC 3.89 L (4.2-5.4) M/uL Hgb 11.5 L (12.0-16.0) g/dL Hct 35.1 L (37-47) % MCV 90.2 (80-100) fL MCH 29.6 (25-34) pg MCHC 32.8 (32-36) g/dL RDW Std Deviation 45.0 (36.4-46.3) fL RDW Coeff of Ivanna 13.6 (11.5-14.5) % Plt Count 196 (130-400) K/uL MPV 10.8 H (7.4-10.4) fL Immature Gran % (Auto) 0.4 % Neut % (Auto) 82.3 % Lymph % (Auto) 11.4 % [place] % (Auto) 5.4 % Eos % (Auto) 0.4 % Baso % (Auto) 0.1 % Neut # (Auto) 9.27 H (1.4-6.5) K/uL Lymph # (Auto) 1.28 (1.2-3.4) K/uL Titus # (Auto) 0.61 H (0.11-0.59) K/uL Eos # (Auto) 0.05 (0-0.5) K/uL Baso # (Auto) 0.01 (0-0.2) K/uL Immature Gran # (Auto) 0.04 H (0.00-0.02) K/uL PT 10.9 (9.0-12.0) Seconds INR 1.0 (0.9-1.1) Sodium 138 (136-145) mmol/L Potassium 3.9 (3.5-5.1) mmol/L Chloride 107 (98-107) mmol/L Carbon Dioxide 21 (21-32) mmol/L Anion Gap 10.0 (3-11) BUN 26 H (7-18) mg/dl Creatinine 0.77 (0.6-1.2) mg/dl Est Cr Clr Drug Dosing 58.1 ml/min Est GFR ( Amer) 79.9 Est GFR (Non-Af Amer) 68.9 BUN/Creatinine Ratio 33.7 H (10-20) Glucose 160 H (70-99) mg/dl Calcium 9.0 (8.5-10.1) mg/dl Magnesium 1.8 (1.8-2.4) mg/dl Total Bilirubin 1.0 (0.2-1) mg/dl AST 20 (15-37) U/L ALT 23 (12-78) U/L Alkaline Phosphatase 77 (45-117) U/L Troponin I < 0.015 (0-0.045) ng/ml Total Protein 7.2 (6.4-8.2) gm/dl Albumin 3.5 (3.4-5.0) gm/dl Globulin 3.7 (2.5-4.0) gm/dl Albumin/Globulin Ratio 0.9 (0.9-2) Lipase 129 (73-393) U/L TSH 1.280 (0.300-4.500) uIu/ml Urine Color Urine Appearance (Clear) Urine pH (4.5-7.5) Ur Specific [place] (1.000-1.030) Urine Protein (Negative) Urine Glucose (UA) (Negative) Urine Ketones (Negative) Urine Blood (Negative) Urine Nitrite (Negative) Urine Bilirubin (Negative) Urine Urobilinogen (Negative) Ur Leukocyte Esterase (Negative) 04/26/20 Range/Units 19:25 WBC (4.8-10.8) K/uL RBC (4.2-5.4) M/uL Hgb (12.0-16.0) g/dL Hct (37-47) % MCV (80-100) fL MCH (25-34) pg MCHC (32-36) g/dL RDW Std Deviation (36.4-46.3) fL RDW Coeff of Ivanna (11.5-14.5) % Plt Count (130-400) K/uL MPV (7.4-10.4) fL Immature Gran % (Auto) % Neut % (Auto) % Lymph % (Auto) % [place] % (Auto) % Eos % (Auto) % Baso % (Auto) % Neut # (Auto) (1.4-6.5) K/uL Lymph # (Auto) (1.2-3.4) K/uL [place] # (Auto) (0.11-0.59) K/uL Eos # (Auto) (0-0.5) K/uL Baso # (Auto) (0-0.2) K/uL Immature Gran # (Auto) (0.00-0.02) K/uL PT (9.0-12.0) Seconds INR (0.9-1.1) Sodium (136-145) mmol/L Potassium (3.5-5.1) mmol/L Chloride (98-107) mmol/L Carbon Dioxide (21-32) mmol/L Anion Gap (3-11) BUN (7-18) mg/dl Creatinine (0.6-1.2) mg/dl Est Cr Clr Drug Dosing ml/min Est GFR ( Amer) Est GFR (Non-Af Amer) BUN/Creatinine Ratio (10-20) Glucose (70-99) mg/dl Calcium (8.5-10.1) mg/dl Magnesium (1.8-2.4) mg/dl Total Bilirubin (0.2-1) mg/dl AST (15-37) U/L ALT (12-78) U/L Alkaline Phosphatase (45-117) U/L Troponin I (0-0.045) ng/ml Total Protein (6.4-8.2) gm/dl Albumin (3.4-5.0) gm/dl Globulin (2.5-4.0) gm/dl Albumin/Globulin Ratio (0.9-2) Lipase (73-393) U/L TSH (0.300-4.500) uIu/ml Urine Color Yellow Urine Appearance Clear (Clear) Urine pH 5.0 (4.5-7.5) Ur Specific [place] 1.020 (1.000-1.030) Urine Protein Negative (Negative) Urine Glucose (UA) Negative (Negative) Urine Ketones 1+ H (Negative) Urine Blood Negative (Negative) Urine Nitrite Negative (Negative) Urine Bilirubin Negative (Negative) Urine Urobilinogen Negative (Negative) Ur Leukocyte Esterase Negative (Negative) Imaging Data Attestation: I personally reviewed and interpreted this imaging study as fol lows: My Impression: Chest x-rayupon my interpretation, there is some mild increased interstitial markings but no pneumonia pneumothorax or any definite CHF. Radiologist's Impression: XR chest 1V portable HISTORY: weakness COMPARISON: Chest 10/04/2019. FINDINGS: Surgical clips within the right neck base are again noted. The heart remains mildly enlarged. There is mild diffuse interstitial thickening which is likely chronic. No new focal lung consolidations to suggest pneumonia. No evidence for pulmonary edema. No pleural effusions. No pneumothorax. IMPRESSION: No change in the cardiomegaly and mild chronic interstitial thickening. No acute process within the chest. CT OF THE HEAD WITHOUT CONTRAST CLINICAL HISTORY: dizziness COMPARISON STUDY: Head CT March 29, 2020. CT DOSE: 614.27 mGy.cm TECHNIQUE: Helical axial images of the head were obtained without IV contrast. Automated exposure control was utilized for the study. A dose lowering technique was utilized adhering to the principles of ALARA. FINDINGS: No acute intracranial hemorrhage, midline shift or mass effect is present. White matter hypodensities are unchanged. These suggest small vessel disease. The ventricular system is unremarkable. The basilar cisterns are patent. No extra-axial collections are present. There are no findings to suggest acute dural sinus thrombosis or acute territorial infarct. No significant calvarial abnormalities are present. Visualized portions of the sinuses and mastoid air cells are clear. IMPRESSION: No acute intracranial findings. ECG Data Attestation: I personally reviewed and interpreted this ECG as follows: Indication: + weakness Rate (beats per minute): 73 Rhythm: + normal sinus and + other (Low voltage) ECG Intervals/blocks: + Normal QRS, + Normal QT and + Normal SC ECG Decker: + Normal ECG ST segments: + Normal ST segments ECG Findings: no PACs and no PVCs Comparison ECG Date: from (10/04/19) Change: no significant change Blood Pressure Blood Pressure Findings: Elevated blood pressure Blood Pressure Disposition: elevated BP felt to be situational MDM Narrative This patient comes in as described above. She has been dizzy and vomiting since she woke up this morning. Most likely this is more of a peripheral vertigo but I did a full stroke work-up and also evaluate her for other potential etiologies as she has very complex medical history. Given the time factors as well as a factor she is on Eliquis she would not be a TPA candidate anyways. She was given IV normal saline bolus EKG chest x-ray head CT and multiple blood testing was obtained. She seems to be doing much better than when she initially came in. Her EKG does not suggest acute coronary syndrome or arrhythmia. She has no significant electro or metabolic abnormalities. CAT scan of her head is unremarkable. She did have worsening of nausea and dizziness after coming back from CAT scan was given IV Zofran as well as IV fluids. She has nothing to suggest infection or sepsis at this point. Most like this is a peripheral vertigo, I talked her daughter at length who did arrive and she says that they both suffer from vertigo although she is never been this bad in the past. I do think she needs to be admitted/observed given her age and other comorbidities she cannot adequately stand at this point. She may need further work-up in the hospital as well including possibly MRI. I have consulted Dr. Jesus, who will see her in the ER for these measures. Continuous cardiac monitoring: An order was placed in the EMR for continuous cardiac monitoring. The patient was noted to be in normal sinus rhythm with a pulse of 71 Impression & Plan Dizziness, Vomiting, Weakness, Ambulatory dysfunction Discharge Plan Visit Data Chief Complaint: Vertigo Stated Complaint: NAUSEA, VOMITING, DIZZINESS ED Provider: Marvin Ruth Discharge Problem: Dizziness, Vomiting, Weakness, Ambulatory dysfunction Patient Disposition: Admitted As Inpatient Discharge Instructions Interventions: ED Discharge Assessment Last Done: 04/26/20 18:15 Discharge Problem: Vomiting Qualifiers: Vomiting type: unspecified Vomiting Intractability: non-intractable Nausea presence: without nausea Qualified Code(s): R11.11 - Vomiting without nausea
[2020-04-26 15:54] LABS: Alanine Aminotransferase 23 U/L (12-78); Albumin Level 3.5 gm/dl (3.4-5.0); Aspartate Aminotransferase 20 U/L (15-37); BUN Creatinine Ratio 33.7 (10-20); Blood Urea Nitrogen 26 mg/dl (7-18); Carbon Dioxide 21 mmol/L (21-32); Chloride 107 mmol/L (98-107); Creatinine Clr Calc Pharmacy 58.1 ml/min; Est GFR (African American) 79.9; Est GFR (Non-African American) 68.9; Glucose 160 mg/dl (70-99); Lipase 129 U/L (73-393); Potassium 3.9 mmol/L (3.5-5.1); Sodium 138 mmol/L (136-145)
[2020-04-26 15:57] LABS: Albumin Globulin Ratio 0.9 (0.9-2); Alkaline Phosphatase 77 U/L (45-117); Globulin 3.7 gm/dl (2.5-4.0); Total Protein 7.2 gm/dl (6.4-8.2)
--- NOTE | 2020-04-26 15:58 | XRay Report ---
XR chest 1V portable HISTORY: weakness COMPARISON: Chest 10/04/2019. FINDINGS: Surgical clips within the right neck base are again noted. The heart remains mildly enlarge d. There is mild diffuse interstitial thickening which is likely chronic. No new focal lung consolida tions to suggest pneumonia. No evidence for pulmonary edema. No pleural effusions. No pneumothorax. IMPRESSION: No change in the cardiomegaly and mild chronic interstitial thickening. No acute process within the c hest. ACT 112: Negative or not required by law. Electronically signed by: Boston Quiroz M.D. 04/26/2020 3:57 PM
[2020-04-26 16:05] LABS: Magnesium 1.8 mg/dl (1.8-2.4)
[2020-04-26 16:12] LABS: Prothrombin Time 10.9 Seconds (9.0-12.0)
[2020-04-26 16:25] LABS: Troponin I < 0.015 ng/ml (0-0.045)
[2020-04-26] MEDS ORDERED: ONDANSETRON INJ 2 MG/ML 2 ML VIAL IV STA (16:38)
--- NOTE | 2020-04-26 16:44 | CT Scan Report ---
CT OF THE HEAD WITHOUT CONTRAST CLINICAL HISTORY: dizziness COMPARISON STUDY: Head CT March 29, 2020. CT DOSE: 614.27 mGy.cm TECHNIQUE: Helical axial images of the head were obtained without IV contrast. Automated exposure con trol was utilized for the study. A dose lowering technique was utilized adhering to the principles o f ALARA. FINDINGS: No acute intracranial hemorrhage, midline shift or mass effect is present. White matter hyp odensities are unchanged. These suggest small vessel disease. The ventricular system is unremarkable. The basilar cisterns are patent. No extra-axial collections are present. There are no findings to murray ggest acute dural sinus thrombosis or acute territorial infarct. No significant calvarial abnormaliti es are present. Visualized portions of the sinuses and mastoid air cells are clear. IMPRESSION: No acute intracranial findings. ACT 112: Negative or not required by law. Electronically signed by: Yogesh Jensen M.D. 04/26/2020 4:43 PM
--- NOTE | 2020-04-26 17:16 | History & Physical Report ---
Date of Service April 26, 2020 History of Present Illness Primary Care Provider: Peterson Aguilar MD Allergies Allergy/AdvReac Type Severity Reaction Status Date / Time amoxicillin Allergy Mild Rash Verified 04/26/20 17:03 cefadroxil Allergy Mild Rash Verified 04/26/20 17:03 Penicillins Allergy Mild Unknown Verified 04/26/20 17:03 erythromycin base Allergy Unknown Unknown Verified 04/26/20 17:03 azithromycin [From Zithromax] AdvReac Intermediate Nausea Verified 04/26/20 17:03 clarithromycin AdvReac Intermediate Nausea Verified 04/26/20 17:03 Macrolide Antibiotics AdvReac Intermediate Gastrointestinal Verified 04/26/20 17:03 Upset moxifloxacin AdvReac Intermediate Nausea Verified 04/26/20 17:03 nitrofurantoin AdvReac Intermediate Gatrointestional Verified 04/26/20 17:03 Upset Sulfa (Sulfonamide AdvReac Intermediate Nausea Verified 04/26/20 17:03 Antibiotics) gluten AdvReac Unknown RASH Verified 04/26/20 17:03 Home Medications Home Medications Medication Instructions Recorded Confirmed Type aspirin [Aspir-81] 81 mg PO DAILY 05/27/18 04/26/20 History benzonatate 100 mg capsule 100 mg PO TID PRN #30 cap 01/19/19 04/26/20 Rx ipratropium 0.5 mg-albuterol 3 mg 3 ml INH Q4H PRN #90 ml 01/19/19 04/26/20 Rx (2.5 mg base)/3 mL nebulization soln nystatin 100,000 unit/gram topical 1 appln TOP TID PRN #60 gm 01/19/19 04/26/20 Rx powder vit C 250 mg-E 200 unit-zinc 40 1 tab PO BID #60 cap 01/19/19 04/26/20 Rx mg-copper 1 [id number]-nzmllr capsule cholecalciferol (vitamin D3) 50 2,000 units PO DAILY #1 cap 02/03/19 04/26/20 History mcg (2,000 unit) capsule telmisartan 40 mg tablet 40 mg PO DAILY #30 tab 05/04/19 04/26/20 Rx levothyroxine 75 mcg capsule 75 mcg PO .COMPLEX #30 cap 08/05/19 04/26/20 Rx alprazolam 0.25 mg tablet 0.25 mg PO DAILY PRN #30 tab 08/12/19 04/26/20 Rx omeprazole 20 mg capsule,delayed 20 mg PO DAILY #90 cap 09/21/19 04/26/20 Rx release metoprolol tartrate 25 mg tablet 25 mg PO BID #180 tab 11/01/19 04/26/20 Rx montelukast 10 mg tablet 10 mg PO DAILY #30 tab 11/01/19 04/26/20 Rx apixaban 5 mg tablet 5 mg PO BID #180 tab 11/29/19 04/26/20 Rx dapsone 25 mg tablet 25 mg PO DAILY #30 tab 11/29/19 04/26/20 Rx food supplemt, lactose-reduced 1 ea PO DAILY #237 ml 11/29/19 04/26/20 Rx 0.04 gram-1.05 kcal/mL oral liquid inhalational spacing device #1 ea 11/29/19 11/29/19 Rx fluticasone propionate 50 2 sprays INTRANASAL DAILY #18.2 gm 12/27/19 04/26/20 Rx mcg/actuation nasal spray,suspension sertraline 50 mg tablet 75 mg PO DAILY #45 tab 12/27/19 04/26/20 Rx levothyroxine 88 mcg tablet 88 mcg PO .COMPLEX #60 tab 02/01/20 04/26/20 Rx atorvastatin 20 mg tablet 20 mg PO DAILY #90 tab 02/23/20 04/26/20 Rx gabapentin 100 mg PO HS PRN 03/29/20 04/26/20 History doxycycline hyclate 100 mg PO BID 04/26/20 04/26/20 History Past Med/Surg History Medical History Actinic keratosis Agoraphobia with panic attacks Anemia Anticoagulant long-term use Anxiety Arteriosclerosis of coronary artery Asthma Atrial fibrillation dx 2015 - on Eliquis - follows w/ Dr. Faith Dermatitis herpetiformis Diverticular disease Fall Gait disturbance Generalized osteoarthritis of multiple sites GERD without esophagitis Heart palpitations History of thyroid cancer [place] (hard of hearing) Hyperhidrosis Hyperlipemia Hyperlipidemia Hypertension Hypothyroidism Hypothyroidism Impacted cerumen of both ears Impaired fasting glucose Insomnia Leukocytosis Lumbar spinal stenosis Macular degeneration Macular degeneration NSTEMI (non-ST elevated myocardial infarction) Osteoarthritis Papillary carcinoma of thyroid Poor historian PTSD (post-traumatic stress disorder) Sleep apnea non compliant with CPAP TMJ (temporomandibular joint disorder) Trigeminal neuralgia UTI (lower urinary tract infection) Vertigo Vitamin D deficiency Weakness generalized Surgical History History of arthroscopic knee surgery History of breast biopsy History of cataract surgery History of dilatation and curettage x 3 History of hysterectomy History of partial thyroidectomy History of tonsillectomy History of total abdominal hysterectomy Nausea and vomiting after administration of anesthetic agent Status post biopsy of thyroid gland Family History Daughter ADHD Hypertension Tourette's Other Heart disease No family history of adverse response to anesthesia Social History Smoking Status: Never smoker Second Hand Exposure: Yes (previous exposure when was living); Hx Alcohol Use: No Hx Substance Use: No Preferred Language: Bengali Communication Ability: Effective Visual Impairment: Diminished Hearing Ability: Hard of Hearing Tripper Required: No Beliefs That Will Affect Care: None marital status: Current Living Situation: Family Current Living Situation Comment: grandson lives with pt current occupational status: retired Feels Safe at Home: Yes Childhood Exposure to Second-Hand Smoke: Yes Dental Care, Regularly: Yes Physical Activity Frequency: Does not Exercise Seatbelt Use: always Sunscreen Use: No Results & Data Results & Data ([facility]) Vital Signs (Past 12 Hours) Vital Signs Temp Pulse Resp BP Pulse Ox 04/26/20 15:37 86 L 04/26/20 15:31 71 16 155/70 H 93 04/26/20 15:15 36.4 C L 73 18 200/79 H 90 PG Care Time/CCT Total # of Minutes Spent Total Time Spent with Patient: Total time spent is greater than 50% in coordination of care (as documented) at patient's floor/unit and/or counseling patient: Coding
[2020-04-26] MEDS ORDERED: POLYETHYLENE (MIRALAX) 17 GM PACK PO PRN (17:17)
[2020-04-26] MEDS ORDERED: ALUMINUM/MAGNESIUM SUSP 30 ML UDC PO PRN (17:17)
--- NOTE | 2020-04-26 18:36 | History & Physical Report ---
Date of Service April 26, 2020 Assessment & Plan (1) Dizziness: Shelly Luong is an 89 yo female with h/o vertigo (1-2 times per year, lasting 1-2 days, self-resolves), CAD, A-fib (on Eliquis), HTN, HLD, Hypothyroidism and h/o Thyroid Cancer, who presented to [facility] ED on 04/26 with dizziness, described as feeling like the "room is spinning", with associated nausea and vomiting since she woke up this morning. Dizziness - based on history of "room spinning" and history of similar episodes several times per year in the past, suspect current symptoms are due to vertigo - although patient has extended duration of symptoms and negative Gracie-Hallpike maneuver, BPPV still most likely diagnosis given low positive predictive value of [place]-Hallpike and past episodes of vertigo that resolved without treatment - unlikely due to vestibular neuritis given no recent URI symptoms - also cannot rule out orthostatic hypotension secondary to inadequate PO intake and recent urinary symptoms, although UA negative for signs of UTI - ordered Meclizine 25 mg PO Q6H PRN for dizziness/vertigo - NSS 250cc bolus given in ED, ordered additional NSS 500cc at 125cc/hr - will trend BMP, Mag, Phos in the AM - Maalox PRN for nausea/vomiting - encourage PO intake while hospitalized - monitor for persistent dizziness Asthma - Duo Nebs PRN ordered - continue home Singulair 10 mg PO daily - supplemental O2 via nasal cannula as needed Hypothyroidism - TSH 1.28 today - continue Synthroid staggered 75 mcg/88mcg home regimen Atrial Fibrillation - continue home dose Eliquis 5mg PO BID - admit to med/surg with tele to monitor for possible RVR due to possible UTI CAD - continue home Aspirin 81 mg PO daily and Lipitor 20 mg PO daily HTN - continue home Lopressor 25 mg PO BID and Telmisartan 40 mg PO daily GERD - Protonix 40 mg PO daily while hospitalized Anemia - chronic, Hgb 11.5 today - baseline - no signs of active bleeding - continue to trend CBC Anxiety - continue home Sertraline 75 mg PO daily - continue home Xanax 0.25 mg PO daily PRN Vitamin D Deficiency - continue supplemental vitamin D Diet: Heart Healthy, NSS 500cc at 125cc/hr as mentioned above DVT Prophylaxis: Eliquis as mentioned above Code Status: Full Code Disposition: med/surg with tele (2) Hypothyroidism: (3) Hyperlipidemia: (4) Asthma: (5) Hypertension: (6) Anemia: (7) Atrial fibrillation: (8) Vitamin D deficiency: (9) GERD without esophagitis: Admission and Anticipated Discharge Date Admission Date: 04/26/2020 History of Present Illness Chief Complaint: vertigo, nausea, vomiting Primary Care Provider: Peterson Aguilar MD Shelly Luong is an 89 yo female with h/o vertigo (1-2 times per year, lasting 1-2 days, self-resolves), CAD, A-fib (on Eliquis), HTN, HLD, Hypothyroidism and h/o Thyroid Cancer, who presented to [facility] ED on 04/26 with dizziness, described as feeling like the "room is spinning", with associated nausea and vomiting since she woke up this morning. The patient reports that woke up, stood up to go to the bathroom, lied down and subsequently felt like the room was spinning. Closing her eyes somewhat alleviated the dizziness but she denies headache, photophobia, phonophobia. Denies associated LOC or fall with this episode of dizziness, although reports tripping on a rug and falling on 03/29 without associated injury or trauma. Patient denies fever, chills, cough, recent sick contacts, but does report dy suria, malodorous urine and increased urgency for the last several days; denies flank pain. Also reports low PO intake - only drinks 16-32 ounces of water per day. No focal weakness, numbness, problems with speech; takes Eliquis 5mg PO BID as prescribed by Dr. Vu for atrial fibrillation. Allergies Allergy/AdvReac Type Severity Reaction Status Date / Time amoxicillin Allergy Mild Rash Verified 04/26/20 17:03 cefadroxil Allergy Mild Rash Verified 04/26/20 17:03 Penicillins Allergy Mild Unknown Verified 04/26/20 17:03 erythromycin base Allergy Unknown Unknown Verified 04/26/20 17:03 azithromycin [From Zithromax] AdvReac Intermediate Nausea Verified 04/26/20 17:03 clarithromycin AdvReac Intermediate Nausea Verified 04/26/20 17:03 Macrolide Antibiotics AdvReac Intermediate Gastrointestinal Verified 04/26/20 17:03 Upset moxifloxacin AdvReac Intermediate Nausea Verified 04/26/20 17:03 nitrofurantoin AdvReac Intermediate Gatrointestional Verified 04/26/20 17:03 Upset Sulfa (Sulfonamide AdvReac Intermediate Nausea Verified 04/26/20 17:03 Antibiotics) gluten AdvReac Unknown RASH Verified 04/26/20 17:03 Home Medications Home Medications Medication Instructions Recorded Confirmed Type aspirin [Aspir-81] 81 mg PO DAILY 05/27/18 05/01/20 History benzonatate 100 mg capsule 100 mg PO TID PRN #30 cap 01/19/19 05/01/20 Rx nystatin 100,000 unit/gram topical 1 appln TOP TID PRN #60 gm 01/19/19 05/01/20 Rx powder vit C 250 mg-E 200 unit-zinc 40 1 tab PO BID #60 cap 01/19/19 05/01/20 Rx mg-copper 1 [id number]-gwostw capsule cholecalciferol (vitamin D3) 50 2,000 units PO DAILY #1 cap 02/03/19 05/01/20 History mcg (2,000 unit) capsule telmisartan 40 mg tablet 40 mg PO DAILY #30 tab 05/04/19 05/01/20 Rx levothyroxine 75 mcg capsule 75 mcg PO .COMPLEX #30 cap 08/05/19 05/01/20 Rx alprazolam 0.25 mg tablet 0.25 mg PO DAILY PRN #30 tab 08/12/19 05/01/20 Rx omeprazole 20 mg capsule,delayed 20 mg PO DAILY #90 cap 09/21/19 05/01/20 Rx release metoprolol tartrate 25 mg tablet 25 mg PO BID #180 tab 11/01/19 05/01/20 Rx montelukast 10 mg tablet 10 mg PO DAILY #30 tab 11/01/19 05/01/20 Rx apixaban 5 mg tablet 5 mg PO BID #180 tab 11/29/19 05/01/20 Rx dapsone 25 mg tablet 25 mg PO DAILY #30 tab 11/29/19 05/01/20 Rx food supplemt, lactose-reduced 1 ea PO DAILY #237 ml 11/29/19 05/01/20 Rx 0.04 gram-1.05 kcal/mL oral liquid inhalational spacing device #1 ea 11/29/19 05/01/20 Rx fluticasone propionate 50 2 sprays INTRANASAL DAILY #18.2 gm 12/27/19 05/01/20 Rx mcg/actuation nasal spray,suspension sertraline 50 mg tablet 75 mg PO DAILY #45 tab 12/27/19 05/01/20 Rx levothyroxine 88 mcg tablet 88 mcg PO .COMPLEX #60 tab 02/01/20 05/01/20 Rx atorvastatin 20 mg tablet 20 mg PO DAILY #90 tab 02/23/20 05/01/20 Rx gabapentin 100 mg PO HS PRN 03/29/20 05/01/20 History doxycycline hyclate 100 mg PO BID 04/26/20 05/01/20 History meclizine 12.5 mg PO TID PRN #30 tab 04/28/20 05/01/20 Rx ondansetron 4 mg PO Q6H PRN #10 tab 04/28/20 05/01/20 Rx ipratropium 0.5 mg-albuterol 3 mg 3 ml INH Q4H PRN #90 ml 05/01/20 Rx (2.5 mg base)/3 mL nebulization soln Past Med/Surg History Medical History (Updated 05/03/20 @ 05:55 by Viipn Rapp) Actinic keratosis Agoraphobia with panic attacks Ambulatory dysfunction Anemia Anticoagulant long-term use Anxiety Arteriosclerosis of coronary artery Asthma Asthma Dermatitis herpetiformis Diverticular disease Fall Gait disturbance Generalized osteoarthritis of multiple sites GERD without esophagitis Heart palpitations History of thyroid cancer [place] (hard of hearing) Hyperhidrosis Hyperlipemia Hyperlipidemia Hypertension Hypothyroidism Hypothyroidism Impacted cerumen of both ears Impaired fasting glucose Insomnia Leukocytosis Lumbar spinal stenosis Macular degeneration Macular degeneration NSTEMI (non-ST elevated myocardial infarction) Osteoarthritis Papillary carcinoma of thyroid Paroxysmal atrial fibrillation Poor historian PTSD (post-traumatic stress disorder) Sleep apnea non compliant with CPAP TMJ (temporomandibular joint disorder) Trigeminal neuralgia UTI (lower urinary tract infection) Vertigo Weakness generalized Surgical History History of arthroscopic knee surgery History of breast biopsy History of cataract surgery History of dilatation and curettage x 3 History of hysterectomy History of partial thyroidectomy History of tonsillectomy History of total abdominal hysterectomy Nausea and vomiting after administration of anesthetic agent Status post biopsy of thyroid gland Family History Daughter ADHD Hypertension Tourette's Other Heart disease No family history of adverse response to anesthesia Social History Smoking Status: Never smoker Second Hand Exposure: Yes (previous exposure when was living); Hx Alcohol Use: No Hx Substance Use: No Preferred Language: Japanese Communication Ability: Effective Visual Impairment: Diminished Hearing Ability: Hard of Hearing Criminal Court Judge Required: No Beliefs That Will Affect Care: None marital status: / Current Living Situation: Family Current Living Situation Comment: grandson current occupational status: retired How many Children do You have: 2 Feels Safe at Home: Yes Childhood Exposure to Second-Hand Smoke: Yes Dental Care, Regularly: Yes Physical Activity Frequency: Does not Exercise Seatbelt Use: always Sunscreen Use: No Review of Systems Constitutional: no fever, no chills and no weight loss Eyes: no photophobia and no worsening vision Ear, Nose, Mouth, Throat: no hearing loss Respiratory: no cough and no dyspnea Cardiovascular: no chest pain, no palpitations and no edema Gastrointestinal: + nausea and + vomiting; no abdominal pain and no diarrhea/loose stools Genitourinary: + dysuria and + urinary urgency; no hematuria and no flank pain Neurologic: + falls; no localized weakness, no generalized weakness, no loss of sensation and no abnormal speech Hematologic / Lymphatic: + easy bruising Physical Exam Constitutional: WD/WN, vitals as above Eyes: PERRL, conjunctivae normal, anicteric sclerae EOM intact bilaterally no nystagmus with [place]-Hallpike maneuver ENMT: external ear and nose normal, oropharynx normal Neck: trachea midline, no thyromegaly Respiratory: normal respiratory effort, lungs clear to auscultation Cardiovascular: irregularly irregular rhythm, no tachycardia, no murmurs, no LE edema Gastrointestinal (Abdomen): Inspection/Auscultation: abdomen normal to inspection and normal bowel sounds; abdomen not distended Percussion/Palpation: + abdomen tender (mild suprapubic tenderness) Musculoskeletal: no cyanosis or clubbing, extremities motor strength 5/5 Skin: no rashes, warm and dry Neurologic: patellar DTR's 2+ bilat, sensation intact and PERRL, EOMI, ac commodation nl, no face palsy, no dysarthria CN's II-XI intact bilaterally Psychiatric: A+Ox3, euthymic affect Lymphatic: no cervical lymphadenopathy Results & Data Results & Data ([facility]) Vital Signs (Past 12 Hours) Vital Signs Temp Pulse Resp BP Pulse Ox 04/26/20 15:37 86 L 04/26/20 15:31 71 16 155/70 H 93 04/26/20 15:15 36.4 C L 73 18 200/79 H 90 Code Status & VTE Plan Code Status Full Code VTE Prophylaxis Plan VTE Prophylaxis will be ordered: Yes Supervising Physician Co-Signing Physician Notes During my face to face encounter with the patient, I obtained a history and physical examination on the patient. I discussed plan of care with patient and Resident Yara and answered patient's questions. I reviewed above note and agree with it. Patient will be admitted with dizziness. Will likely consult neuro and will obtain MRI head. will consider meclizine. Resident Activity Tracking Resident Involvement: Resident Care Provided Care Provided: Adult Hospital Medicine (1) Atrial fibrillation Atrial fibrillation type: paroxysmal Qualified Code(s): I48.0 - Paroxysmal atrial fibrillation (2) Hyperlipidemia Hyperlipidemia type: unspecified Qualified Code(s): E78.5 - Hyperlipidemia, unspecified (3) Asthma Asthma complication type: uncomplicated Asthma persistence: intermittent Asthma severity: mild Qualified Code(s): J45.20 - Mild intermittent asthma, uncomplicated
--- NOTE | 2020-04-26 19:27 | Electrocardiogram Report ---
Test Reason : Blood Pressure : / mmHG Vent. Rate : 073 BPM Atrial Rate : 073 BPM P-R Int : 190 ms QRS Dur : 074 ms QT Int : 404 ms P-R-T Axes : 051 -19 008 degrees QTc Int : 445 ms Poor data quality, interpretation may be adversely affected Normal sinus rhythm Low voltage QRS Inferior infarct (cited on or before 03-SEP-2007) Abnormal ECG When compared with ECG of 04-OCT-2019 17:36, No significant change was found Confirmed by Jr Tijerina ([id number]) on 04/26/2020 7:27:06 PM Referred By: REFERRED SELF Confirmed By:Stanley Tijerina
[2020-04-26 19:44] LABS: Appearance Urine Clear (Clear); Bilirubin Urine Negative (Negative); Blood Urine Negative (Negative); Color Urine Yellow; Glucose Urine UA Negative (Negative); Ketones Urine 1+ (Negative); Leukocyte Esterase Urine Negative (Negative); Nitrite Urine Negative (Negative); Protein Urine Negative (Negative); Urobilinogen Urine Negative (Negative)
[2020-04-26] MEDS ORDERED: SODIUM CHLORIDE 0.9% 500 ML IV SCH (19:45)
[2020-04-26] MEDS ORDERED: ALPRAZolam 0.25 MG TABLET PO PRN (19:46)
[2020-04-26] MEDS ORDERED: ALBUT/IPRATROP 3MG/0.5MG NEB 3 ML VIAL INH PRN (19:46)
[2020-04-26] MEDS ORDERED: GABAPENTIN 100 MG CAP PO PRN (19:46)
[2020-04-26] MEDS ORDERED: MECLIZINE HCL 25 MG TAB PO PRN (19:56)
[2020-04-26] MEDS ORDERED: ONDANSETRON INJ 2 MG/ML 2 ML VIAL IV PRN (20:58)
[2020-04-26] MEDS ORDERED: CIPROFLOXACIN 500 MG TAB PO SCH (21:00)
[2020-04-26] MEDS: APIXABAN 5 MG TABLET PO SCH (22:21)
[2020-04-26] MEDS: METOPROLOL TARTRATE 25 MG TAB PO SCH (22:22)
[2020-04-27] MEDS ORDERED: LEVOTHYROXINE SODIUM 75 MCG TABLET PO SCH (06:30)
--- NOTE | 2020-04-27 07:26 | Magnetic Resonance Report ---
MRI OF THE BRAIN WITHOUT IV CONTRAST CLINICAL HISTORY: Vertigo. COMPARISON STUDY: CT of the brain dated 04/26/2020. TECHNIQUE: MRI of the brain was performed utilizing various T1 and T2-weighted sequences in the axial , sagittal, and coronal planes. IV contrast was not administered for this examination. FINDINGS: Brain parenchyma: There is age-related involutional change noting moderate to advanced subcortical an d periventricular microangiopathic disease. There is no hemorrhage or mass effect. There is no restri cted diffusion to suggest acute ischemia. Downey-white matter differentiation is preserved. No extra-ax ial fluid collection is seen. The cerebellar tonsils are normal in configuration. Ventricles, sulci, and cisterns: Prominent secondary to involutional change. Pituitary and sella: Unremarkable. Intracranial vasculature: Normal flow voids are maintained at the skull base. Orbits: The bony orbits are grossly intact. Orbital contents are normal in appearance noting bilatera l ocular lens implants. Sinuses and mastoids: Clear. Calvarium: Unremarkable. Cervical cord: Partially visualized cervical spinal cord is normal in morphology and signal intensity . IMPRESSION: No acute intracranial abnormality. ACT 112: Negative or not required by law. Electronically signed by: Liam Suarez M.D. 04/27/2020 7:24 AM
[2020-04-27] MEDS: CHOLECALCIFEROL 1,000 UNITS 25 MCG TAB PO SCH (09:43)
[2020-04-27] MEDS: TELMISARTAN 40 MG TAB PO SCH (09:43)
[2020-04-27] MEDS: ASPIRIN 81 MG ECTAB PO SCH (09:43)
[2020-04-27] MEDS: MONTELUKAST SODIUM 10 MG TABLET PO SCH (09:43)
[2020-04-27] MEDS: APIXABAN 5 MG TABLET PO SCH ×2 (09:44→20:23)
[2020-04-27] MEDS: PANTOprazole 40 MG TAB PO SCH (09:44)
[2020-04-27] MEDS: SERTRALINE HCL 50 MG TABLET PO SCH (09:46)
[2020-04-27] MEDS: METOPROLOL TARTRATE 25 MG TAB PO SCH ×2 (09:46→20:27)
[2020-04-27] MEDS: ATORVASTATIN 20 MG TAB PO SCH (09:47)
[2020-04-27] MEDS ORDERED: ACETAMINOPHEN 500 MG TAB PO PRN (11:45)
[2020-04-27] MEDS: ALBUT/IPRATROP 3MG/0.5MG NEB 3 ML VIAL INH SCH (19:35)
--- NOTE | 2020-04-27 20:46 | Hospitalist Progress Note ---
Date of Service April 27, 2020 Assessment & Plan (1) Vertigo: Peripheral in origin. Neuro exam wnl (no ataxia, no visual field cuts, EOMI, etc) and MRI brain neg for brainstem stroke. Has h/o peripheral vertigo in the past. Symptoms improving with supportive care. Cannot rule out an acute infectious labrynthitis given the mild asthma flare. Place on meclizine scheduled 12.5mg TID. PT evaluation - vestibular eval - requested. (2) Vomitinnd to acute vertigo - resolved. (3) Paroxysmal atrial fibrillation: noted. telemetry thus far normal. cont eliquis 5mg BID. cont metoprolol 25mg BID. (4) Hypothyroidism: TSH wnl. Cont home regimen of synthroid. (5) Hypertension: markedly elevated last night upon presentation but quickly improved. cont home regimen of meds and monitor. (6) Hyperlipidemia: cont statin agent. (7) GERD without esophagitis: cont PPI (8) Arteriosclerosis of coronary artery: noted cont BB, statin, ARB, asa (9) Asthma: maybe has the early beginnings of mild exacerbation defer on steroids place on scheduled duonebs and follow (10) DVT prophylaxis: eliquis BID daughter Monica updated by phone today await PT eval Admission and Anticipated Discharge Date Admission Date: April 26, 2020 Subjective pt's vertigo is overall improved. she still has some mild dizziness with movements of the head but improved from yesterday. she reports having had a left frontal headache near the left eye earlier today - improved with tylenol. she typically does not get headaches. denies any visual field cuts, severe ataxia, or double vision. some hearing changes in the right ear yesterday. occasional tinnitus but none at present. also with mild cough - started yesterday when she was having emesis. long history of asthma. tele overnight wnl ([facility]). Review of Systems Constitutional: no fever, no chills and no anorexia Respiratory: + cough and + wheezing; no dyspnea Cardiovascular: no chest pain Gastrointestinal: no abdominal pain, no nausea and no vomiting Physical Exam Constitutional: + obese; no acute distress and no altered mental status Eyes: normal visual sanchez by confrontation and PERRL minimal horizontal nystagmus with rightward gaze ENMT: external ear and nose normal, oropharynx normal Respiratory: no respiratory distress Auscultation: + wheezes (minimal end- exp wheeze ); no crackles Cardiovascular: Rate/Rhythm: regular rate and regular rhythm Heart Sounds: normal S1, normal S2 and + murmur (1/6 systolic LSB) Vessels: posterior tibial pulses present and dorsalis pedis pulses present; no JVD Extremities: + edema (trace b/l ) Gastrointestinal (Abdomen): normal bowel sounds, soft, nontender, no hepatosplenomegaly Musculoskeletal: no tenderness to palpation over either temporal artery Neurologic: moves all extremities; no focal motor deficits Coordination: normal [id number] test Results & Data Results & Data ([facility]) Vital Signs (Past 12 Hours) Vital Signs Temp Pulse Pulse Resp BP Pulse Ox 04/27/20 20:27 36.8 C 71 18 140/57 L 94 04/27/20 20:01 70 04/27/20 19:36 73 16 96 04/27/20 15:25 36.7 C 64 18 127/71 93 PG Care Time/CCT Total # of Minutes Spent Total Time Spent with Patient: Total time spent is greater than 50% in coordination of care (as documented) at patient's floor/unit and/or counseling patient: Coding Level of Care Code 59533 Subseq Hosp Care Lvl 3 Diagnoses Vertigo R42 Vomiting R11.11 Nausea presence: without nausea Vomiting Intractability: non-intractable Vomiting type: unspecified Paroxysmal atrial fibrillation I48.0 Hypothyroidism E89.0 Hypothyroidism type: postoperative Hypertension I10 Hypertension type: essential hypertension Hyperlipidemia E78.5 Hyperlipidemia type: unspecified GERD without esophagitis K21.9 Arteriosclerosis of coronary artery I25.10 Asthma J45.20 Asthma severity: mild Asthma persistence: intermittent Asthma complication type: uncomplicated DVT prophylaxis Z29.9 (1) Vomiting Nausea presence: without nausea Vomiting Intractability: non-intractable Vomiting type: unspecified Qualified Code(s): R11.11 - Vomiting without nausea (2) Hypothyroidism Hypothyroidism type: postoperative Qualified Code(s): E89.0 - Postprocedural hypothyroidism (3) Hypertension Hypertension type: essential hypertension Qualified Code(s): I10 - Essential (primary) hypertension (4) Hyperlipidemia Hyperlipidemia type: unspecified Qualified Code(s): E78.5 - Hyperlipidemia, unspecified (5) Asthma Asthma severity: mild Asthma persistence: intermittent Asthma complication type: uncomplicated Qualified Code(s): J45.20 - Mild intermittent asthma, uncomplicated
[2020-04-27] MEDS: MECLIZINE 12.5 MG TAB PO SCH (21:12)
[2020-04-28] MEDS: ALBUT/IPRATROP 3MG/0.5MG NEB 3 ML VIAL INH SCH ×3 (01:07→13:17)
[2020-04-28] MEDS ORDERED: LEVOTHYROXINE SODIUM 88 MCG TABLET PO SCH (06:30)
[2020-04-28 08:09] LABS: Basophils # (auto) 0.02 K/uL (0-0.2); Basophils % (auto) 0.3 %; Eosinophils # (auto) 0.19 K/uL (0-0.5); Eosinophils % (auto) 2.6 %; Hematocrit (blood only) 32.8 % (37-47); Hemoglobin 10.6 g/dL (12.0-16.0); Immature Granulocytes # (auto) 0.02 K/uL (0.00-0.02); Immature Granulocytes % (auto) 0.3 %; Lymphocytes # (auto) 2.41 K/uL (1.2-3.4); Lymphocytes % (auto) 32.5 %; Mean Corpuscular Hemoglobin 29.8 pg (25-34); Mean Corpuscular Hgb Conc 32.3 g/dL (32-36); Mean Corpuscular Volume 92.1 fL (80-100); Mean Platelet Volume 10.4 fL (7.4-10.4); Monocytes # (auto) 0.78 K/uL (0.11-0.59); Monocytes % (auto) 10.5 %; Neutrophils # (auto) 3.99 K/uL (1.4-6.5); Neutrophils % (auto) 53.8 %; Platelet Count 176 K/uL (130-400); RDW Coefficient of Variation 13.9 % (11.5-14.5); RDW Standard Deviation 46.5 fL (36.4-46.3); Red Blood Count 3.56 M/uL (4.2-5.4); White Blood Count 7.41 K/uL (4.8-10.8)
[2020-04-28] MEDS: ASPIRIN 81 MG ECTAB PO SCH (08:37)
[2020-04-28] MEDS: APIXABAN 5 MG TABLET PO SCH (08:37)
[2020-04-28] MEDS: MONTELUKAST SODIUM 10 MG TABLET PO SCH (08:38)
[2020-04-28] MEDS: TELMISARTAN 40 MG TAB PO SCH (08:38)
[2020-04-28] MEDS: ATORVASTATIN 20 MG TAB PO SCH (08:38)
[2020-04-28] MEDS: METOPROLOL TARTRATE 25 MG TAB PO SCH (08:39)
[2020-04-28] MEDS: MECLIZINE 12.5 MG TAB PO SCH ×2 (08:39→13:15)
[2020-04-28] MEDS: PANTOprazole 40 MG TAB PO SCH (08:39)
[2020-04-28] MEDS: CHOLECALCIFEROL 1,000 UNITS 25 MCG TAB PO SCH (08:39)
[2020-04-28] MEDS: SERTRALINE HCL 50 MG TABLET PO SCH (08:40)
[2020-04-28 08:44] LABS: BUN Creatinine Ratio 25.4 (10-20); Calcium 9.4 mg/dl (8.5-10.1); Creatinine Clr Calc Pharmacy 42.1 ml/min; Est GFR (African American) 53.7; Est GFR (Non-African American) 46.3
--- NOTE | 2020-04-28 16:29 | Discharge Summary ---
Date of Service date of admission - April 26, 2020 date of discharge - April 28, 2020 Admission HPI Per Admitting Provider Shelly Luong is an 89 yo female with h/o vertigo (1-2 times per year, lasting 1-2 days, self-resolves), CAD, A-fib (on Eliquis), HTN, HLD, Hypothyroidism and h/o Thyroid Cancer, who presented to [facility] on 04/26 with dizziness, described as feeling like the "room is spinning", with associated nausea and vomiting since she woke up this morning. The patient reports that woke up, stood up to go to the bathroom, lied down and subsequently felt like the room was spinning. Closing her eyes somewhat alleviated the dizziness but she denies headache, photophobia, phonophobia. Denies associated LOC or fall with this episode of dizziness, although reports tripping on a rug and falling on 03/29 without associated injury or trauma. Patient denies fever, chills, cough, recent sick contacts, but does report dysuria, malodorous urine and increased urgency for the last several days; denies flank pain. Also reports low PO intake - only drinks 16-32 ounces of w ater per day. No focal weakness, numbness, problems with speech; takes Eliquis 5mg PO BID as prescribed by Dr. Vu for atrial fibrillation. Principal Diagnosis acute peripheral vertigo - imporoved Discharge Exam Constitutional + obese; no acute distress and no altered mental status Eyes normal visual sanchez by confrontation, PERRL and + nystagmus (Minimal horizontal - fast component towards right ear ) ENMT external ear and nose normal, oropharynx normal Respiratory no respiratory distress Auscultation: + wheezes (minimal end-exp wheeze ); no crackles Cardiovascular Rate/Rhythm: regular rate and regular rhythm Heart Sounds: normal S1, normal S2 and + murmur (1/6 systolic LSB) Vessels: posterior tibial pulses present and dorsalis pedis pulses present; no JVD Extremities: + edema (trace b/l ) Gastrointestinal (Abdomen) normal bowel sounds, soft, nontender, no hepatosplenomegaly Neurologic moves all extremities; no focal motor deficits Coordination: normal suhthe-ll-ezja test Discharge Data Allergies Allergy/AdvReac Type Severity Reaction Status Date / Time amoxicillin Allergy Mild Rash Verified 04/26/20 17:03 cefadroxil Allergy Mild Rash Verified 04/26/20 17:03 Penicillins Allergy Mild Unknown Verified 04/26/20 17:03 erythromycin base Allergy Unknown Unknown Verified 04/26/20 17:03 azithromycin [From Zithromax] AdvReac Intermediate Nausea Verified 04/26/20 17:03 clarithromycin AdvReac Intermediate Nausea Verified 04/26/20 17:03 Macrolide Antibiotics AdvReac Intermediate Gastrointestinal Verified 04/26/20 17:03 Upset moxifloxacin AdvReac Intermediate Nausea Verified 04/26/20 17:03 nitrofurantoin AdvReac Intermediate Gatrointestional Verified 04/26/20 17:03 Upset Sulfa (Sulfonamide AdvReac Intermediate Nausea Verified 04/26/20 17:03 Antibiotics) gluten AdvReac Unknown RASH Verified 04/26/20 17:03 Consultations physical therapy Ordered Studies 04/26/20 15:41 CT head/brai FINDINGS: No acute intracranial hemorrhage, midline shift or mass effect is present. White matter hypodensities are unchanged. These suggest small vessel disease. The ventricular system is unremarkable. The basilar cisterns are patent. No extra-axial collections are present. There are no findings to suggest acute dural sinus thrombosis or acute territorial infarct. No significant calvarial abnormalities are present. Visualized portions of the sinuses and mastoid air cells are clear.n wo con Stat 04/26/20 17:19 MR brain wo con Urgent IMPRESSION: No acute intracranial abnormality. cxr: IMPRESSION: No change in the cardiomegaly and mild chronic interstitial thickening. No acute process within the chest. Hospital Course (1) Vertigo: Peripheral in origin. Neuro exam wnl (no ataxia, no visual field cuts, EOMI, etc) and MRI brain neg for brainstem stroke. Has h/o peripheral vertigo in the past. Symptoms improved with supportive care and meclizine. Cannot rule out an acute infectious labrynthitis given the concurrent mild asthma flare. Seen by PT and walked nearly 100 feet prior to discharge. Minimal vertigo was present by the time of discharge. Patient to take scheduled meclizine TID for 2-3 days, then prn usage thereafter at home. Home PT services have been arranged for patient. (2) Paroxysmal atrial fibrillation: telemetry normal during the stay without any PAF. cont eliquis 5mg BID. cont metoprolol 25mg BID. (3) Hypothyroidism: TSH wnl. Cont home regimen of synthroid. (4) Hypertension: markedly elevated BPs upon ER presentation but BPs quickly improved shortly after discharge. cont home regimen of medications upon discharge. (5) Hyperlipidemia: cont statin agent. (6) GERD without esophagitis: cont PPI (7) Arteriosclerosis of coronary artery: noted cont BB, statin, ARB, asa no ischemic symptoms while hospitalized troponin negative (8) Asthma: very mild exacerbation while hospitalized responding to scheduled neb treatments. minimal wheeze on exam on day of discharge. elected to place on short prednisone course at discharge which may help vertigo as well. patient asked to use duonebs scheduled for a few days at home, then switch to prn use thereafter. (9) Chronic kidney disease, stage 3a: baseline CrCl 40s/50s stable while here Total Time Total Time Spent Total Time Spent (In Minutes): 45 Total Time Includes: Examination of the Patient, Discharge Planning and Me dication Reconciliation Discharge Plan Discharge Items Patient Disposition: Home - Home Health Services Reason For Visit: VERTIGO Discharge Diagnosis: vertigo - improved. Activity: As commented below Activity Comment: gradually increase your activities over the next few days Non-emergency contact: Primary Care Provider Call non-emergency contact if: you have any medication questions, your symptoms worsen and you have a fever Follow-up/Referrals: Peterson Aguilar MD [Primary Care Provider] - 05/02/20 11:00 am (Your appointment is with the physician logistics assistant, Jamilah Addison. If you need to change this a ppointment, please call [phone]) Diet: Heart Healthy Add Attending Provider Instructions: You were treated for vertigo with medicines while you were hospitalized. A brain MRI did NOT show a stroke or tumor as the cause of your symptoms. It is likely that the vertigo came from your inner ear in one of your ears (I suspect it was the right ear). It is possible that a respiratory virus infected the inner ear causing this episode of vertigo. If it was indeed a virus the symptoms just gradually fade out/go away with time. You were seen by physical therapy and they recommended home health with home PT/OT. Please use your walker to ambulate around your home. Recommendations - 1. for the next 2 days please SCHEDULE meclizine 12.5mg THREE TIMES A DAY. After 2 days you can change to NEEDED use of the meclizine. This is your vertigo/dizzy pill. In some people the meclizine makes them mildly sleepy. In others it sometimes causes dry mouth. Use caution around your home, take it slow the next few days, and be careful at night-time when getting out of bed or going to the bathroom. 2. avoid sudden head movements and changes in position over the next few days, including when you turn over in bed. 3. if you are still driving a car please refrain from driving until - *your vertigo/dizziness is COMPLETELY resolved AND you are no longer taking the meclizine 4. following a low salt diet sometimes helps with the vertigo. 5. for your asthma - * use your nebulizer treatments 3-4 times a day scheduled for the next 3-5 days * take prednisone 40mg daily for 5 days; start this today * continue your advair as previous 6. continue to socially distance, wear a mask when you leave your home, and obtain a flu shot this year. 7. may take ondansetron tablets every 6 hours as needed for nausea and/or vomiting. These dissolve on your tongue. Return to [facility] if - * you have fever over 100 degrees * you have recurrent vertigo/dizziness that is severe * you have difficulty walking * you have worsening wheezing or shortness of breath * you have changes in your vision * you have severe nausea or vomiting * you have double vision * any other concerns Pending Studies at Discharge: No Stand-Alone Forms: My [facility], Smoking Cessation Medications and DC Order Prescriptions: New meclizine 12.5 mg Tablet 12.5 mg PO TID PRN (Reason: dizziness/vertigo) Qty: 30 RF: 0 ondansetron 4 mg tablet,disintegrating 4 mg PO Q6H PRN (Reason: nausea and vomiting) Qty: 10 RF: 0 Continued telmisartan 40 mg tablet 40 mg PO DAILY Qty: 30 RF: 5 levothyroxine 75 mcg capsule 75 mcg PO .COMPLEX Qty: 30 RF: 2 alprazolam 0.25 mg tablet 0.25 mg PO DAILY PRN (Reason: Anxiety) Qty: 30 RF: 0 omeprazole 20 mg capsule,delayed release(DR/EC) 20 mg PO DAILY Qty: 90 RF: 3 metoprolol tartrate 25 mg tablet 25 mg PO BID Qty: 180 RF: 1 montelukast 10 mg tablet 10 mg PO DAILY Qty: 30 RF: 5 fluticasone propionate 50 mcg/actuation spray,suspension 2 sprays Intranasal DAILY Qty: 18.2 RF: 2 sertraline 50 mg tablet 75 mg PO DAILY Qty: 45 RF: 5 levothyroxine 88 mcg tablet 88 mcg PO .COMPLEX Qty: 60 RF: 0 atorvastatin 20 mg tablet 20 mg PO DAILY Qty: 90 RF: 3 cholecalciferol (vitamin D3) 2,000 unit capsule 2,000 units PO DAILY Qty: 1 RF: 0 benzonatate 100 mg capsule 100 mg PO TID PRN (Reason: cough) Qty: 30 RF: 2 nystatin 100,000 unit/gram powder 1 appln TOP TID PRN (Reason: rash) Qty: 60 RF: 0 PreserVision AREDS-2 [id number] fi-rclf-vh-mg capsule 1 tab PO BID Qty: 60 RF: 0 (DME) Aerochamber MV Spacer See Rx Instructions .ROUTE .MEDSUPPLY Qty: 1 RF: 0 Boost Breeze Nutritional 0.04-1.05 gram-kcal/mL liquid 1 ea PO DAILY Qty: 237 RF: 0 dapsone 25 mg tablet 25 mg PO DAILY Qty: 30 RF: 0 Eliquis 5 mg tablet 5 mg PO BID Qty: 180 RF: 3 gabapentin 100 mg capsule 100 mg PO HS PRN (Reason: pain) RF: 0 aspirin [Aspir-81] 81 mg Tablet,Delayed Release (Dr/Ec) 81 mg PO DAILY RF: 0 doxycycline hyclate 100 mg Capsule 100 mg PO BID RF: 0 No Action ipratropium-albuterol 0.5 mg-3 mg(2.5 mg base)/3 mL solution for nebulization 3 ml INH Q4H PRN (Reason: shortness of breath or wheezing) Qty: 90 RF: 2 Discharge Orders: Discharge Order (Routine); Ordered 04/28/20 Ordered By: Vipin Rapp Admission Data Admit Date/Time: 04/26/20 17:17 Attending Provider: Vipin Rapp Admit Provider: Tylor Martínez Primary Care Provider: Peterson Aguilar Other Providers: yTlor Martínez Other Interventions: Discharge Summary Assessment (RN) Last Done: 04/28/20 16:20 Coding Level of Care Code D/C Day Management >30 mins Diagnoses Vertigo R42 Paroxysmal atrial fibrillation I48.0 Hypothyroidism E89.0 Hypothyroidism type: postoperative Hypertension I10 Hypertension type: essential hypertension Hyperlipidemia E78.5 Hyperlipidemia type: unspecified GERD without esophagitis K21.9 Arteriosclerosis of coronary artery I25.10 Asthma J45.20 Asthma complication type: uncomplicated Asthma persistence: intermittent Asthma severity: mild Chronic kidney disease, stage 3a N18.3
--- NOTE | 2020-05-03 08:25 | Billing Data ---
Date of Service April 26, 2020 Coding Level of Care Code 52697 OBS Care - Level 3
== END 2020-04-28 17:17 | disposition home health service (06) ==
LOC: ED 14:53 → 2W 14:53 → SUATTDRO 19:46